=== PATIENT | female | born 1950 | race Caucasian/White ===

== ENCOUNTER 2016-08-11 20:06 | Inpatient (IN) | payer BC, OTHER ==
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
--- NOTE | ~2016-08-11 | EGD ---
EGD REPORT [facility] [address] [address] NAME: MATY COBURN : 52 STATUS : ADM IN PAT#: [id number] AGE: 66 ADM/REG DATE : 08/11/16 MR#: [id number] REPORT SERV DATE: 08/18/16 DICTATED BY: DATE: REPORT STATUS : Draft TRANSCRIBED BY: [employer] DATE: 08/18/16 Endoscopy Center Patient Name: Maty Coburn Date of : 1950 Attending MD: STALIN MAHER MD Procedure Date No Time: 08/18/2016 Procedure: Upper GI endoscopy Indications: Dysphagia Referring MD: CODY KLEIN Medicines: Monitored Anesthesia Care Complications: No immediate complications. Procedure: Pre-Anesthesia Assessment: - ASA Grade Assessment: IV - A patient with severe systemic disease that is a constant threat to life. After obtaining informed consent, the endoscope was passed under direct vision. Throughout the procedure, the patient's blood pressure, pulse, and oxygen saturations were monitored continuously. The GIF [id number] was introduced through the mouth, and advanced to the third part of duodenum. The upper GI endoscopy was accomplished without difficulty. The patient tolerated the procedure well. Findings: A mild Schatzki ring (acquired) was found at the gastroesophageal junction. This was best visualized in retroflexion Biopsies were taken with a cold forceps for histology from the mid and distal esophagus to evaluate for EoE. A guidewire was placed and the scope was withdrawn. Dilation was performed with a Savary dilator with no resistance at 57 Fr. The examined esophagus was mildly tortuous. No other significant abnormalities were identified in a careful examination of the esophagus. There is no endoscopic evidence of Salgado's esophagus, areas of erosion, hiatus hernia, ulcerations, varices, findings consistent with candidiasis, vertical lines or white specks in the entire esophagus. The entire examined stomach was normal. There is no endoscopic evidence of inflammation, mucosal abnormalities, ulceration or varices in the entire examined stomach. The examined duodenum was normal. There is no endoscopic evidence of inflammation, mucosal abnormalities, stenosis or ulceration in the entire examined duodenum. The cardia and gastric fundus were otherwise normal on retroflexion. Impression: - Mild Schatzki ring. Biopsied. Dilated. - Tortuous esophagus. EGD REPORT [place] [id number] [place]. [address] NAME: MATY COBURN : 52 STATUS : ADM IN [facility]#: [id number] AGE: 66 ADM/REG DATE : 08/11/16 MR#: [id number] REPORT SERV DATE: 08/18/16 DICTATED BY: DATE: REPORT STATUS : Draft TRANSCRIBED BY: [employer] DATE: 08/18/16 - Normal stomach. - Normal examined duodenum. Recommendation: - Return patient to [facility] for ongoing care. - Continue present medications. - Await pathology results. - Concur with interval Reglan. Hopefully can be d/c in future. Will arrange follow up with Dr. Nino through our office. Procedure Code(s): --- Professional --- 94937, Esophagogastroduodenoscopy, flexible, transoral; with insertion of guide wire followed by passage of dilator(s) through esophagus over guide wire 28250, Esophagogastroduodenoscopy, flexible, transoral; with biopsy, single or multiple Diagnosis Code(s): --- Professional --- K22.2, Esophageal obstruction Q39.9, Congenital malformation of esophagus, unspecified R13.10, Dysphagia, unspecified CPT copyright 2013 [employer]. All rights reserved. The codes documented in this report are preliminary and upon expediter review may be revised to meet current compliance requirements. STALIN MAHER MD 08/18/2016 9:39 AM This report has been signed electronically. Number of Addenda: 0 Note Initiated On: 08/18/2016 8:58 AM Scope Withdrawal Time 0 hours 0 minutes 0 seconds [id number] [place] [address]
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
--- NOTE | ~2016-08-11 | CN ---
Consultation Report [facility] [address] [place]. [address] NAME: CHAPIN GUTIERRES : 52 STATUS : ADM IN PAT#: [id number] AGE: 66 ADM/REG DATE : 08/12/16 MR#: [id number] REPORT SERV DATE: 08/13/16 DICTATED BY: ARAVIND CHOUDHURY DATE: 08/13/16 REPORT STATUS : Draft TRANSCRIBED BY: MODL DATE: 08/13/16 SURGICAL CONSULTATION NOTE DATE OF CONSULTATION: 08/13/2016 REQUESTING PHYSICIAN: Hospitalist Christian/Kole Parry M.D. HISTORY: This is a 66-year-old, morbidly obese, white female with an extremely long complex and confusing past medical and surgical history. This is well detailed in Dr. Webster's admission note as well as Dr. Soto' GI consultation note. Distilling her issues from a GI nature is that she has for some time been suspected to have gastroparesis but then gastric emptying study showed no evidence of this recently. She had been planned for EGDs but had not gotten it scheduled. Dr. Soto' notes indicate that he has suspected she has oropharyngeal dysphagia and has recommended the possibility of modified barium swallow plus or minus EGD in the future for possible aspiration pneumonia and to further evaluate her esophageal problems. The patient was actually at [facility] starting about a month ago and was there for about 10 days and then got transferred to the [facility] for about a week. She had been home for a week. She was placed in the facility here for further respiratory problems and evaluation of pneumonia for last few days. REVIEW OF SYSTEMS: Reveals that the patient has regular bowel movements. She had them fairly regularly during her [facility] admission. Now is on sort of a modified thick diet and then the last few days here, she has had a lot to eat, but she does claim to have solid bowel movements. In the early hours of the morning over late last evening, she developed persistent nausea and vomiting, requesting Phenergan. A KUB showed markedly to massively distended stomach with dilated small bowel. Reading the notes from 2230 hours last night, the abdomen was firm and bowel sounds were positive. Her medications were changed and a KUB showed the aforementioned findings. An NG tube was placed with marked improvement in her symptoms. She did get 200 mL of gastric content out but probably a lot of massive amount air that cannot be measured. Followup CT scan today has shown again the possibility of a small bowel obstruction, specifically with the dilated stomach as previously reported and then her small bowel is dilated throughout the upper jejunum and nondistended bowel down into the pelvis. She had some bibasilar infiltrates in her lungs. The abdomen is quite distended and tympanitic but curiously extremely soft with absolutely no tenderness. Bowel sounds are decreased. I see no evidence of abdominal wall hernia. She has small incisions from laparoscopic cholecystectomy. I do not see an incision under suprapubic area from hysterectomy. I suspect her hysterectomy may have been vaginal. There is no hepatosplenomegaly or masses. LABORATORY DATA: WBCs 11.1 thousand with 10 bands, H and H 11.8 and 36.2, potassium 5.7. Consultation Report [address] [place]. [address] NAME: CHAPIN GUTIERRES : 52 STATUS : ADM IN [facility]#: [id number] AGE: 66 ADM/REG DATE : 08/12/16 MR#: [id number] REPORT SERV DATE: 08/13/16 DICTATED BY: ARAVIND CHOUDHURY DATE: 08/13/16 REPORT STATUS : Draft TRANSCRIBED BY: ROMINA DATE: 08/13/16 LFTs within normal limits. IMPRESSION: Possible mechanical small bowel obstruction, favor ileus or some other "peristaltic dysfunction." PLAN: The patient seems to have resolved her current symptoms of nausea and vomiting. She is temporarily with NG tube insertion. Will check KUB for further evaluation of success. She may benefit from water-soluble contrast small bowel series if she continues to have persistent problems. WR/MODL Aravind Choudhury M.D. / [id number] CC: Amber Weathers KATRINA V.
--- NOTE | ~2016-08-11 | IDS ---
Interim Discharge Summary [facility] [address] [place]. [address] NAME: CHAPIN GUTIERRES : 52 STATUS : ADM IN PAT#: [id number] AGE: 66 ADM/REG DATE : 08/11/16 MR#: [id number] REPORT SERV DATE: 08/27/16 DICTATED BY: SEAN HINKLE DATE: 08/27/16 REPORT STATUS : Draft TRANSCRIBED BY: MODSimran DATE: 08/27/16 ADMISSION DATE: 08/11/2016 DISCHARGE DATE: REASON FOR ADMISSION: This is a 66-year-old female, who presented with shortness of breath and cough and would be admitted for aspiration bronchitis, and acute exacerbation of COPD. INITERIM DISCHARGE DIAGNOSES: 1. Megacolon/Denver's, resolved. 2. Oropharyngeal dysphagia with status post aspiration pneumonia and bronchitis, status post antibiotic therapy. 3. Status post acute exacerbation of chronic obstructive pulmonary disease. 4. Gastroparesis. 5. Chronic pain. 6. Paroxysmal atrial fibrillation. 7. Hypertension. 8. Hyperthyroidism, on PTU therapy. 9. Sinus congestion. HOSPITAL COURSE: Please see interim discharge summary from Dr. Olvin Jeronimo on 08/21/2016 and admission H and P from Dr. Fitz Webster on 08/12/2016 for full details on admission and hospital stay. I picked the patient up on 08/22/2016. 1. Megacolon/Salomon's. The patient was having abdominal pain and distention on my visit with her on the 08/22/2016. She had had a KUB on the afternoon of the 08/21/2016 which showed a dilated colon. A rectal tube was placed and a KUB was rechecked. Due to the size of her colon dilation and severity of her symptoms, the patient was seen by surgeon, Dr. Woodall, who felt like she would need to have a colonoscopy decompression, so that was performed by Dr. Nino on the afternoon of the 08/22/2016. She saw dilated sigmoid colon and transverse colon and ascending colon, placed a rectal tube to low intermittent wall suction. The decompression tube did help resolve the symptoms. However, on the night of the 08/23/2016, the patient's rectal tube came out with bowel movement. After the rectal tube came out, she again started experiencing abdominal distention, KUB that morning which showed diffuse gaseous dilation of the colon that measured 7.5 cm. However, the patient began having bowel movements later that day and passing gas, and on the morning of the 08/25/2016 KUB which showed successful decompression of the distended colon. The patient's MS Contin which she takes chronically at home had been restarted the previous week and so it was discontinued again. About 48 hours after the discontinuation of the MS Contin is when the patient experienced successful decompression of the colon without the assistance of rectal tube. Since that time, her diet has been readvanced. She is now once again on mechanical soft diet with honey thick liquids. The patient had a swallow test that had revealed aspirations and the recommendation was made for mechanical soft diet with chopped meats with gravy, honey thick liquids and chin tuck with double swallow. It was also recommended for her to receive esophageal stimulation with a repeat barium swallow study in six to eight weeks. 2. Oropharyngeal dysphagia with aspiration pneumonia and bronchitis. The patient is now Interim Discharge Summary [address] [address] NAME: CHAPIN GUTIERRES : 52 STATUS : ADM IN PAT#: [id number] AGE: 66 ADM/REG DATE : 08/11/16 MR#: [id number] REPORT SERV DATE: 08/27/16 DICTATED BY: SEAN HINKLE DATE: 08/27/16 REPORT STATUS : Draft TRANSCRIBED BY: ROMINA DATE: 08/27/16 status post antibiotic treatment for the aspiration pneumonia and bronchitis. However, with her COPD, she was still having recurrent bronchospasms, this week those bronchospasms have resolved, and she has been weaned off prednisone. However, she possibly experienced yet another aspiration event overnight. She had extreme coughing spells and felt like she was choking. Apparently, the patient potentially received liquids without thickening agent and so that could have been the cause. At any rate, the patient is better today, no acute shortness of breath, although she does have congestive sounds in her upper airway. Chest x-ray has been ordered and pending. We have given her a Yankauer suction to use p.r.n. I also gave her Lasix 20 mg IV x1, and I have given strict orders to only give the patient thickened liquids. 3. Gastroparesis. The patient's appetite is doing well on a combination of Marinol and Reglan. She is able to tolerate her current diet. 4. Chronic pain. We have substituted fentanyl patch for her MS Contin, and her pain is satisfactorily controlled currently. 5. Paroxysmal atrial fibrillation. The patient actually had a short run of atrial fibrillation with RVR. Today, we have given her an extra dose of Cardizem 60 mg x1 now and repeat in six hours, and we will increase her to 300 mg p.o. daily of her Cardizem CD tomorrow morning. 6. Sinus congestion. The patient has some complaints of ear fullness and sinus congestion. We have started her on Flonase, Astelin nasal spray, and Claritin and this has helped her symptoms. CURRENT MEDICATIONS: 1. Albuterol inhaled q.4 hours. 2. Astelin nasal spray b.i.d. 3. Formoterol tartrate inhaled b.i.d. 4. Budesonide inhaled b.i.d. 5. Clotrimazole 10 mg p.o. five times a day. 6. Diltiazem CD 300 mg p.o. daily. 7. Marinol 5 mg p.o. b.i.d. 8. Fentanyl 50 mcg q.72 hours. 9. Fluticasone nasal spray daily. 10.Guaifenesin 1200 mg p.o. b.i.d. 11.Spiriva daily. 12.Lisinopril 20 mg p.o. daily. 13.Loratadine 10 mg p.o. daily. 14.Reglan 5 mg p.o. q.6 hours. 15.Singulair 10 mg p.o. daily. 16.Protonix 40 mg p.o. daily. 17.MiraLAX one packet p.o. daily. 18.Pramipexole 1 mg p.o. q.h.s. 19.Propylthiouracil 50 mg p.o. t.i.d. 20.Senna two tabs p.o. b.i.d. 21.Simethicone 120 mg p.o. before meals. 22.Hydralazine 50 mg p.o. q.8 hours. CURRENT PLAN: The patient to be reassessed in the morning. If stable for discharge, we will Interim Discharge Summary [facility] [address] [place]. [address] NAME: CHAPIN GUTIERRES : 52 STATUS : ADM IN PAT#: [id number] AGE: 66 ADM/REG DATE : 08/11/16 MR#: [id number] REPORT SERV DATE: 08/27/16 DICTATED BY: SEAN HINKLE DATE: 08/27/16 REPORT STATUS : Draft TRANSCRIBED BY: ROMINA DATE: 08/27/16 try to facilitate discharge to rehab. The patient does have [employer] Medicare, so information will have to be submitted to her insurance in the morning. This perhaps will take 24 hours or more. Case Management to assist with that. BENJAMIN/ROMINA Sean Hinkle APN / [id number] CC: Amber Weathers KATRINA V. Carlos Baleeiro, M.D. Destin Griffin-Trussell, FNP Walter Rose, M.D.
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
--- NOTE | ~2016-08-11 | IDS ---
Interim Discharge Summary [facility] [address] [place]. [address] NAME: CHAPIN GUTIERRES : 52 STATUS : ADM IN PAT#: [id number] AGE: 66 ADM/REG DATE : 08/11/16 MR#: [id number] REPORT SERV DATE: 09/05/16 DICTATED BY: MICHAEL JERONIMO DATE: 09/04/16 REPORT STATUS : Draft TRANSCRIBED BY: MODL DATE: 09/04/16 ADMISSION DATE: 08/11/2016 DISCHARGE DATE: DATE OF SUMMARY: 09/04/2016 Interim summary covers period from 08/29/2016 through 09/04/2016. CURRENT DIAGNOSES: 1. Acute exacerbation of chronic obstructive pulmonary disease with history of asthma, somewhat refractory to maximal medical therapy, improved at this time. 2. Oropharyngeal dysphagia by modified barium swallow study. Rehab swallow therapy needed. 3. Suspected recurrent aspiration with history of aspiration, treated with prolonged hospitalization at [facility] in July of this year. 4. Nosocomial acquired acute influenza A leading to recurrent exacerbation of chronic obstructive pulmonary disease, treated and improved at this time. 5. Small-bowel obstruction, present on admission, improved. 6. Megacolon/Falmouth's syndrome, nosocomial acquired, improved. 7. Chronic nausea and dysphagia with EGD on 08/18/2016 demonstrating mild Schatzki's ring, dilated tortuous esophagus, normal stomach, and normal examined duodenum. 8. Gastroesophageal reflux disease. 9. Uncontrolled hypertension, improved at this time. 10.Paroxysmal atrial fibrillation. 11.Sinus rhythm at this time, on medical therapy. 12.Eliquis anticoagulation with no consistent mucosal bleeding, noting positive stool for Hemoccult on the 08/31/2016, negative on the 08/30/2016 and 09/01/2016. 13.Chronic hyperthyroidism, on outpatient PTU, uncontrolled on same with TSH values 0.21, 0.056, 0.024. Transition to methimazole. 14.Iron deficiency with ferritin of 37, treated with IV Nulecit. 15.Chronic anemia. 16.Acute thrombocytopenia with present illness, improved. 17.Acute kidney injury, present on admission, improved. 18.Chronic pain syndrome with acute exacerbation during hospitalization. Chronic pain medications deescalated because of bowel dysmotility as described above. 19.Obstructive sleep apnea post uvulopalatopharyngoplasty, on home O2. 20.Restless legs syndrome. 21.Urinary retention requiring Perry catheterization. 22.History of gout with possible acute gout today, right foot, Solu-Medrol initiated. 23.History of yjh-MF-wqrhmjxcy myocardial infarction in 2010 without significant troponin elevations this admission. 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 25.Polypharmacy, see med list. 26.Poly-allergy. See allergy list. 27.Poly-surgery. See surgical List. Interim Discharge Summary [address] [address] NAME: CHAPIN GUTIERRES : 52 STATUS : ADM IN [facility]#: [id number] AGE: 66 ADM/REG DATE : 08/11/16 MR#: [id number] REPORT SERV DATE: 09/05/16 DICTATED BY: MICHAEL JERONIMO DATE: 09/04/16 REPORT STATUS : Draft TRANSCRIBED BY: MODSimran DATE: 09/04/16 OPERATIONS AND PROCEDURES: During this interim, none. INTERVAL HISTORY: She was diagnosed as having acute influenza A on 08/28/2016. She was started on Tamiflu 75 mg twice daily. In addition, she was thought to have developed hospital-acquired pneumonia and was placed on vancomycin and cefepime. With these events, there was an exacerbation of her cough, sputum, wheezing, and dyspnea. She received five days of Tamiflu. She was followed by Pulmonary. ID consultation was obtained on the 08/31/2016, and she was seen by Dr. Wei Cesar. He suggested continuing her current regimen, but re-culturing and changing her antimicrobial therapy to meropenem should she have recurrent fever. This did not occur. During this week, her vancomycin and cefepime have been sequentially discontinued. Her last temperature of 100 or greater was on 08/31/2016. A procalcitonin which had been 0.79 on the 08/31/2016 was 0.10 on the 09/02/2016. Her white count which was 16.4 on the 08/29/2016 normalized at 9.9 on the 08/30/2016 and is 4.7 today. During this time, her cough, sputum, dyspnea, and wheezing have also improved, but not totally resolved. It was felt that some of her bronchospasm and dyspnea was related to volume overload. She improved with IV diuretic therapy and has been transitioned to maintenance p.o. Aldactone and torsemide with continued improvement. She continues to have intermittent nausea, requiring IV Phenergan. She has no relief from Zofran. An attempt has been made to discontinue her chronic Perry catheterization. With the same, she developed urinary retention and this has been replaced. She has had recurrent atrial fibrillation. Because of her high stroke risk, she was placed on Eliquis. At this time, she is back in sinus rhythm without evident mucosal bleeding and a stable hemoglobin in the 7s. With her recurrent atrial fibrillation and documented hyperthyroidism, it was decided her treatment was adequate on her chronic PTU as noted by the above-mentioned TSH values. She has been transitioned to high-dose methimazole with followup data pending. She has had some encephalopathy. It is thought to be related to her chronic opioids. These have been deescalated with significant improvement in her mental status. She currently is on p.r.n. Percocet only and no maintenance opioids. She is being re-evaluated by Physical Therapy and [facility] for inpatient rehab. I spoke with the [facility] liaison today. The patient has agreed to same if medically and financially approved. Interim Discharge Summary [address] [address] NAME: CHAPIN GUTIERRES : 52 STATUS : ADM IN [facility]#: [id number] AGE: 66 ADM/REG DATE : 08/11/16 MR#: [id number] REPORT SERV DATE: 09/05/16 DICTATED BY: MICHAEL JERONIMO DATE: 09/04/16 REPORT STATUS : Draft TRANSCRIBED BY: MODL DATE: 09/04/16 Hospitalist care will be assumed by [address] [place] [address] hospitalist team on 09/05/2016. DD/SUJEYL Michael Jeronimo M.D. / [id number] CC: Amber Yee KATRINA V.
--- NOTE | ~2016-08-11 | EGD ---
EGD REPORT [facility] [address] [address] NAME: MATY COBURN LANDRADHA : 52 STATUS : ADM IN PAT#: [id number] AGE: 66 ADM/REG DATE : 08/11/16 MR#: [id number] REPORT SERV DATE: 08/22/16 DICTATED BY: SHAGGY LIZARRAGA DATE: 08/22/16 REPORT STATUS : Draft TRANSCRIBED BY: [facility] DATE: 08/22/16 Endoscopy Center Patient Name: Maty Coburn Date of : 1950 Attending MD: SHAGGY LIZARRAGA MD Procedure Date No Time: 08/22/2016 Procedure: Colonoscopy Indications: Therapeutic procedure, For therapy of Salomon's syndrome Referring MD: CODY KLEIN Medicines: Propofol per Anesthesia Complications: No immediate complications. Procedure: Pre-Anesthesia Assessment: - ASA Grade Assessment: III - A patient with severe systemic disease. After I obtained informed consent, the scope was passed under direct vision. Throughout the procedure, the patient's blood pressure, pulse, and oxygen saturations were monitored continuously. The [facility] [id number] was introduced through the anus and advanced to the ascending colon for evaluation. This was the intended extent. The colonoscopy was performed without difficulty. The patient tolerated the procedure well. The quality of the bowel preparation was poor. Findings: The perianal and digital rectal examinations were normal. The lumen of the sigmoid colon, transverse colon and ascending colon was significantly dilated. No ischemic changes were seen. A colonic decompression tube was placed. Impression: - Preparation of the colon was poor. - Dilated in the sigmoid colon, in the transverse colon and in the ascending colon. Recommendation: - Keep rectal tube to LIWS. - Repeat KUB in AM. Procedure Code(s): --- Professional --- 40690, 52, Colonoscopy, flexible, proximal to splenic flexure; diagnostic, with or without collection of specimen(s) by brushing or washing, with or without colon decompression (separate procedure) Diagnosis Code(s): --- Professional --- K59.3, Megacolon, not elsewhere classified EGD REPORT [facility] [address] [address] NAME: MATY COBURN : 52 STATUS : ADM IN PAT#: [id number] AGE: 66 ADM/REG DATE : 08/11/16 MR#: [id number] REPORT SERV DATE: 08/22/16 DICTATED BY: SHAGGY LIZARRAGA. DATE: 08/22/16 REPORT STATUS : Draft TRANSCRIBED BY: [employer] DATE: 08/22/16 K59.8, Other specified functional intestinal disorders CPT copyright 2013 [employer] [place] [employer]. All rights reserved. The codes documented in this report are preliminary and upon sonar technician review may be revised to meet current compliance requirements. SHAGGY LIZARRAGA MD 08/22/2016 5:45 PM This report has been signed electronically. Number of Addenda: 0 Note Initiated On: 08/22/2016 4:44 PM Scope Withdrawal Time 0 hours 0 minutes 0 seconds [address] [address]
--- NOTE | ~2016-08-11 | IDS ---
Interim Discharge Summary [facility] [address] [place]. [address] NAME: CHAPIN GUTIERRES : 51 STATUS : ADM IN PAT#: [id number] AGE: 66 ADM/REG DATE : 08/11/16 MR#: [id number] REPORT SERV DATE: 08/21/16 DICTATED BY: MICHAEL JERONIMO DATE: 08/20/16 REPORT STATUS : Draft TRANSCRIBED BY: MODL DATE: 08/20/16 ADMISSION DATE: 08/11/2016 DISCHARGE DATE: DATE OF INTERIM SUMMARY: 08/20/2016. CURRENT DIAGNOSES: 1. 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 2. Oropharyngeal dysphagia by modified barium swallow study. 3. Suspected aspiration on admission with history of aspiration, treated with prolonged hospitalization at [facility] in July of this year. 4. Small-bowel obstruction, present on admission, improved. 5. Acute kidney injury, present on admission, improved. 6. Chronic nausea and dysphagia with EGD on the demonstrating mild Schatzki ring, dilated tortuous esophagus, normal stomach, and normal examined duodenum. 7. Gastroesophageal reflux disease. 8. Uncontrolled hypertension, improved control at this time. 9. Paroxysmal atrial fibrillation with history of same, Eliquis initiated. 10.Chronic hyperthyroid, on PTU. Further endocrine outpatient followup needed at discharge. 11.Iron deficiency with ferritin 37, treated with IV Nulecit. 12.Obstructive sleep apnea, on home O2. 13.Restless leg syndrome. 14.Chronic pain syndrome. 15.History of colon polyps. 16.History of non-STEMI, 2010. 17.History of gout. 18.Polypharmacy. 19.Polyallergies. 20.Polysurgeries. 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 22.Inpatient rehab recommended by PT, currently declined by patient. OPERATIONS AND PROCEDURES: None. PRESENT ILLNESS: This is a medically complex 66-year-old white female, who was triaged in the emergency room on 08/11/2016 at 1605 hours with shortness of breath. After evaluation in the emergency room, she was referred to the Hospitalist Service. She was seen by Dr. Fitz Webster and admitted as described on admission history and physical examination. Additional history was that she had been hospitalized at [facility] for approximately 10 days in early July and was subsequently transferred to [facility]. After a slow recovery, it was recommended that she be transitioned to rehab or a skilled facility, but she opted to return home. Interim Discharge Summary [place] [id number] [place]. [address] NAME: CHAPIN GUTIERRES : 51 STATUS : ADM IN [facility]#: [id number] AGE: 66 ADM/REG DATE : 08/11/16 MR#: [id number] REPORT SERV DATE: 08/21/16 DICTATED BY: MICHAEL JERONIMO DATE: 08/20/16 REPORT STATUS : Draft TRANSCRIBED BY: MODL DATE: 08/20/16 For three days prior to admission, she began to feel poorly again with increasing congestion and a cough productive of yellow sputum. She came here for further evaluation as described. ADDITIONAL HISTORY: Per Dr. Webster. PHYSICAL EXAMINATION: Per Dr. Webster. ADMISSION LABORATORY: Per Dr. Webster. HOSPITAL COURSE: She was admitted by Dr. Webster with: 1. Aspiration bronchitis. 2. Acute kidney injury. 3. Odynophagia. 4. Polypharmacy. 5. Recent aspiration pneumonia, all in the setting of the above-mentioned comorbidities. On admission, she was placed on p.o. prednisone, aerosols, Zithromax, and IV fluids. Her home diuretic was held. GI consultation was obtained. Her hospitalist care was by Dr. Parry through 08/14/2016 and then the undersigned from 08/15/2016. She was seen by GI, Dr. Soto. He recommended empiric Diflucan, PPI therapy, modified barium swallow, and EGD when her symptoms allowed. With her GI symptoms, a CT scan of her abdomen and pelvis was done on the . This demonstrated 1. Small-bowel obstruction transitioned to nondistended bowel seen in the pelvis. 2. Patchy bibasilar infiltrates. 3. Small hiatal hernia. 4. Nonobstructing right intrarenal calculi. 5. Tiny appendolith with no evidence of acute cholecystitis. She was seen in surgical consultation by Dr. Aravind Woodall. His impression was possible mechanical small-bowel obstruction, but he favored ileus or some other "peristaltic dysfunction." An NG tube had been placed. Her symptoms were improving. He suggested consideration of small-bowel follow-through. Her abdominal films showed continued improvement. Her NG tube was discontinued. PO intake was initiated and progressed. She did not have further nausea or vomiting. There was a concern about aspiration. A modified barium swallow was done on 08/16 that demonstrated deep penetration to the level of the vocal cords with thin and nectar-thick liquids with suspected aspiration due to cough, but this could not be visualized. Dietary modification was recommended with e-stim at her next level of care. On 08/18/2016, an EGD was done with findings as noted above. Interim Discharge Summary [facility] [address] [place]. [address] NAME: CHAPIN GUTIERRES : 51 STATUS : ADM IN [facility]#: [id number] AGE: 66 ADM/REG DATE : 08/11/16 MR#: [id number] REPORT SERV DATE: 08/21/16 DICTATED BY: MICHAEL JERONIMO DATE: 08/20/16 REPORT STATUS : Draft TRANSCRIBED BY: ROMINA DATE: 08/20/16 She continues to have some intermittent nausea and dysphagia, but her symptoms have improved with Reglan and Protonix as well as the above-mentioned dilatation. Her cough, sputum, and wheezing have persisted. This is despite bronchodilator therapy with DuoNebs, Brovana, and budesonide as well as p.o. Mucinex and Singulair in addition to dietary modifications recommended by Speech. It is felt microaspiration is probably contributing as well as possibly some volume overload. As noted, her diuretics were discontinued on admission. With resolution of her acute kidney injury, these are being re- instituted. To further evaluate her persistent bronchospasm, a CT scan of her neck was done to evaluate the possibility of upper airway obstruction or other abnormalities. No abnormalities were found except extensive surgical changes as noted on official report. A CT scan of her chest demonstrates persistent bibasilar parenchymal bands, but no acute pneumonic process. She has required intensification of her home blood pressure regimen to achieve better blood pressure control. Blood pressures today are 148/66, 142/66, and 127/66 which are significantly better. She has paroxysmal atrial fibrillation. Apparently, it was identified during previous hospitalization at [place]. In the absence of contraindications to anticoagulation therapy and with her high CHADS-VASC score, Eliquis has been started. On admission, her home pain medications were discontinued. Her chronic pain intensified. With re-institution, she is back to her baseline state. She has been on propylthiouracil for hyperthyroidism for an unclear period of time. She did have a documented low TSH in 02/2011 and 09/2012. TSH on admission here was 0.21. Her PTU had been held on admission. A repeat TSH was 0.056 with a free T4 of 1.67. Her PT was restarted. Notably her neck CT did not show any thyroid enlargement. She will need endocrine followup at discharge. Hospitalist care to be assumed by [address] [place] [address] Team pending transition planning on 08/21/2016. DD/ROMINA Michael Jeronimo M.D. / [id number] Interim Discharge Summary [address] [address] NAME: CHAPIN GUTIERRES : 51 STATUS : ADM IN PAT#: [id number] AGE: 66 ADM/REG DATE : 08/11/16 MR#: [id number] REPORT SERV DATE: 08/21/16 DICTATED BY: MICHAEL JERONIMO DATE: 08/20/16 REPORT STATUS : Draft TRANSCRIBED BY: ROMINA DATE: 08/20/16 CC: Amber Yee MD
--- NOTE | ~2016-08-11 | DS ---
Discharge Summary [facility] [address] [place]. [address] NAME: CHAPIN GUTIERRES : 52 STATUS : DIS IN PAT#: [id number] AGE: 66 ADM/REG DATE : 08/11/16 MR#: [id number] REPORT SERV DATE: 09/07/16 DICTATED BY: CHRISTOPHER ADLER DATE: 09/06/16 REPORT STATUS : Draft TRANSCRIBED BY: MODSimran DATE: 09/06/16 ADMISSION DATE: 08/11/2016 DISCHARGE DATE: 09/06/2016 DISCHARGE DIAGNOSES: 1. Acute exacerbation of chronic obstructive pulmonary disease with history of asthma, somewhat refractory to maximal medical therapy, improved and stable at this time. Oropharyngeal dysphagia with modified barium swallow study. Will need speech therapy at rehab. 2. Suspected recurrent aspiration with history of aspiration, treated with prolonged hospitalization at [facility] in July of this year. 3. Nosocomial acquired acute influenza A leading to recurrent exacerbation of chronic obstructive pulmonary disease, treated and improved at this time. 4. Small-bowel obstruction, present on admission, which has now resolved. 5. Megacolon with [place] syndrome, nosocomial acquired, which has now resolved. 6. Chronic nausea and dysphagia with EGD on 08/18/2016 demonstrating mild Schatzki's ring, dilated tortuous esophagus, normal stomach and normal examined duodenum. 7. Gastroesophageal reflux disease. 8. Uncontrolled hypertension, currently improved with medication adjustments. 9. Paroxysmal atrial fibrillation. 10.Sinus rhythm in good time, on medical therapy. 11.Eliquis anticoagulation with no consistent mucosal bleeding, noting positive stools for Hemoccult on 08/31/2016, 08/30/2016, and the 09/01/2016. 12.Chronic hyperthyroidism, on outpatient PTU, uncontrolled on the same with TSH values of 0.21 and 0.05 and 0.02. Transitioned to methimazole. 13.Iron deficiency with ferritin of 37, treated with IV Nulecit. 14.Chronic anemia. 15.Chronic thrombocytopenia, due to present illness, currently improved. 16.Acute kidney injury, currently resolved. 17.Chronic pain syndrome with acute exacerbation during hospitalization. Chronic pain medications deescalated because of bowel dysmotility as described above. 18.Obstructive sleep apnea, post valvuloplasty, on home O2 at night. 19.Restless leg syndrome. 20.Urinary retention, requiring Perry catheterization, to be continued at discharge. 21.History of gout with possible acute gout today, right foot, Solu-Medrol initiated and resolved. 22.History of non ST-elevation myocardial infarction in 2010 without significant troponin elevation this admission. 23.Low IgG subclass 1 and 2. 24.Polypharmacy. 25.Poly-allergy. 26.Poly-surgery. CONSULTANTS DURING THIS HOSPITALIZATION: Dr. Wei Cesar of Infectious Disease. Dr. Christine Soto of Gastroenterology. Dr. Aravind Woodall of General Surgery. Discharge Summary [place] [address] [facility] [place]. [address] NAME: CHAPIN GUTIERRES : 52 STATUS : DIS IN PAT#: [id number] AGE: 66 ADM/REG DATE : 08/11/16 MR#: [id number] REPORT SERV DATE: 09/07/16 DICTATED BY: CHRISTOPHER ADLER DATE: 09/06/16 REPORT STATUS : Draft TRANSCRIBED BY: ROMINA DATE: 09/06/16 PROCEDURES: Invasive procedures during this hospital course none. BRIEF HISTORY OF PRESENT ILLNESS: The patient is a medically complex 66-year-old female, admitted with shortness of breath on 08/11/2016. For detailed history and physical exam, please see note dictated by Dr. Fitz Webster on 08/11/2016. HOSPITAL COURSE: After being admitted to the hospital, this patient was cared for by Dr. Kole Parry and then her care was handed off to Dr. Olvin Jeronimo on 08/15/2016. Please refer to interim summary dictated by Dr. Jeronimo on 08/21/2016 during that hospital course, and then the patient was again seen by Dr. Parry and Dr. Johnnie Carbajal. Please refer to interim summary dictated on 08/27/[address] Johnnie Carbajal and then Dr. Jeronimo saw the patient again. Please refer to Dr. Jeronimo's interim summary dictated on 09/05/2016. The undersigned took over the patient's care on 09/05/2016. This patient was doing relatively well. We were at this point only awaiting rehab approval from her insurance company. The patient had been referred to [facility]. I did review her chart thoroughly. Currently, she is stable and all medical condition seems to be progressing well or as better as it can be expected in this complex medically ill patient. She is ready for rehab. She did complain of some heel pain. This was thought due to pressurizing against the bed and the patient was re-encouraged that with rehab that should improve. She remained stable, otherwise and is being discharged in stable condition. DISCHARGE DISPOSITION: To rehab. DISCHARGE ACTIVITY: Per facility. DISCHARGE DIET: 1800 calorie [employer] [place] [employer] diet. DISCHARGE MEDICATIONS: Eliquis 2.5 mg p.o. twice daily, Astelin nasal spray two sprays each nostril once daily, artificial tears as needed, Cardizem CD 360 mg once daily, Flonase two puffs each nostril once daily, guaifenesin 1200 mg p.o. twice daily, Lidoderm patch 5% applied to the right shoulder and neck 12 hours on 12 hours off, lisinopril 10 mg once daily, magnesium oxide 400 mg p.o. three times daily, methimazole 20 mg p.o. every eight hours, Reglan 5 mg p.o. before meals and at bedtime, Singulair 10 mg with lunch, Nexium 40 mg twice daily, MiraLAX one packet p.o. twice daily, Mirapex 1 mg p.o. once at bedtime, Colace 100 mg p.o. once at bedtime, Mylicon 120 mg p.o. after meals for abdominal bloating, Aldactone 50 mg p.o. every morning, Spiriva one capsule inhalation once daily, torsemide 10 mg once daily, hydralazine 50 mg every eight hours, Brovana 15 mcg one neb twice daily, Proventil 1 neb four times daily, Pulmicort 1 mg neb twice daily, artificial tears, potassium 10 mEq twice daily, Percocet 10/325 one tablet every four hours p.r.n. for pain, and Biotene. DISCHARGE FOLLOWUP: Discharge followup with Dr. Emma Gonzalez post rehab. More than 40 minutes spent planning this patient's discharge, reconciling medications, reviewing the extensive medical history, and documenting this discharge. Discharge Summary [address] [address] NAME: CHAPIN GUTIERRES : 52 STATUS : [facility] [id number] AGE: 66 ADM/REG DATE : 08/11/16 MR#: [id number] REPORT SERV DATE: 09/07/16 DICTATED BY: CHRISTOPHER ADLER DATE: 09/06/16 REPORT STATUS : Draft TRANSCRIBED BY: ROMINA DATE: 09/06/16 JUSTYN/ROMINA Christopher Adler M.D. / [id number] CC: Amber Batista KATRINA V.
[2016-08-11 16:36] LABS: BASOPHILS 0.7 %; BASOPHILS ABSOLUTE 0.06 10/3/uL (0.0-0.16); EOSINOPHILS 3.1 %; EOSINOPHILS ABSOLUTE 0.26 10/3/uL (0.0-0.53); IMMATURE GRANULOCYTES 3.2 %; IMMATURE GRANULOCYTES ABSOLUTE 0.27 10/3/uL (0.0-0.11); LYMPHOCYTES 18.9 %; MEAN CORPUS HGB CONC 31.7 g/dL (32.0-36.0); MEAN PLATELET VOLUME 10.2 fL (9.2-13.0); MONOCYTES 9.3 %; MONOCYTES ABSOLUTE 0.79 10/3/uL (0.21-1.20); NEUTROPHILS 64.8 %; PLATELET COUNT 206 10/3/uL (150-400); RBC DISTRIBUTION WIDTH 17.2 % (12.0-16.0); RED CELL COUNT 4.37 10/6/uL (4.0-5.6); WHITE BLOOD CELLS 8.5 10/3/uL (4.5-10.5)
[2016-08-11 16:41] LABS: HEMATOCRIT 34.7 % (36.0-48.0); MANUAL DIFF NO %; MEAN CORPUSCULAR HEMOGLOB 25.2 pg (26.0-34.0); MEAN CORPUSCULAR VOLUME 79.4 fL (80-100)
[2016-08-11 16:58] LABS: CALCIUM, SERUM 9.5 MG/DL (8.5-10.4); CHEST PAIN PROFILE TAT 0 Hrs 26 Mins; CHLORIDE, SERUM 95 MMOL/L (96-112); CO2 (CARBON DIOXIDE) 29 MMOL/L (24-34); SODIUM, SERUM 135 MMOL/L (135-148); TROPONIN I <0.02 NG/ML (<0.05)
[2016-08-11 16:59] LABS: BUN (BLOOD UREA NITROGEN) 57 MG/DL (6-23); CREATININE 1.49 MG/DL (0.55-1.02); GFR AFRICAN AMERICAN 42 ML/MIN (>=60); GFR NON AFRICAN AMERICAN 36 ML/MIN (>=60); GLUCOSE, SERUM 119 MG/DL (60-99); POTASSIUM, SERUM 5.6 MMOL/L (3.5-5.3)
[2016-08-11 17:00] LABS: PROTIME (NOT ORD) 12.6 SEC (12.0-14.5)
[~2016-08-11 20:06] MED LIST: ADVAIR250 INH; ALBUTERAL INH; ALBUTEROL PO; AMB5 PO; ANADS PO; APRES50 PO; ASAB PO; BACDS PO; CALTRA600D PO; CARD30 PO; CARDIZEM LA360 MG PO; CEFT2 PO; CLARIT10 PO; COMBIVENT INH; CYMBALTA30 PO; DSS PO; DURA50 TOP; ESTROPIPATE0.75 MG PO; FLONASE NAS; GENASOFT100 MG PO; GLUCPH PO; K-TABS10 MEQ PO; KDUR10 PO; KDUR20 PO; KLONO1 PO; KLONO2 PO; KLOR-CON M2020 MEQ PO; L20 PO; L40 PO; L80 PO; LAN125 PO; LIDODERM T; LIPITOR20 PO; LOP25 PO; LOTE20 PO; MACROBID PO; MAGOX4 PO; MCZ25 PO; MIRAPEX0.75 MG PO; MIRAPEX1 MG PO; MIRAPEX5 PO; MSCONT60 PO; MUCINEX; MUCINEX D1 TA1 OR; MUCINEX D1 TA1 PO; MUCINEX D1 TAB OR; MUCINEX1200 MG PO; MUCINEX600 MG PO; NABUMETONE750 MG PO; NEXIUM40 PO; NYSTOP100000 MG TOP; OGEN; ORAMORPH PO; OS500+D PO; OXYCONTIN60 MG PO; P10 PO; P20 PO; PERCOCET1 TA4 PO; PERFOROM INH; PRAVAC PO; PREDNISONE; PROPYLTHIOUR50 MG OR; PROPYLTHIOUR50 MG PO; PROVENTIL NEB INH; PROVENTSOL INH; PROVHFA INH; ROBITUSS22 OR; ROXICODONE15 MG PO; SALONPAS-HOT EX; SINGULAIR1 PO; SKELAXIN8 PO; SPIRIVA INH; STERAPRED DS10 MG PO; SUCR PO; SYMBICORT 160/41 INH INH; TAZTIA X3 PO; TIAZA4 PO; TRAZ100 PO; TRAZODONE150 MG PO; URO-MAG140 MG PO; V5 PO; VENTOLIN HFA INH; XANAX1 MG PO; ZITHROMAX500 MG PO; ZOL100 PO; ZOLOFT PO; [UNRECOGNIZED DRUG - OTHER] PO
[2016-08-11] MEDS ORDERED: FLONASE NAS (21:05)
[2016-08-11] MEDS ORDERED: ALBUTEROL5 INH (21:05)
[2016-08-11] MEDS ORDERED: PRIN10 PO (21:06)
[2016-08-11] MEDS ORDERED: SINGULAIR1 PO (21:06)
[2016-08-11] MEDS ORDERED: PROPYLTHIOURACI50 MG PO (21:06)
[2016-08-11] MEDS ORDERED: KLOR-CON 1010 MEQ PO (21:07)
[2016-08-11] MEDS ORDERED: L40 PO (21:07)
[2016-08-11] MEDS ORDERED: MSCONTIN PO (21:08)
[2016-08-11] MEDS ORDERED: APRES25 PO (21:09)
[2016-08-11] MEDS ORDERED: SPIRO50 PO (21:10)
[2016-08-11] MEDS ORDERED: SPIRIVA INH (21:10)
[2016-08-11] MEDS ORDERED: CARDIZEM LA300 MG PO (21:11)
[2016-08-11] MEDS ORDERED: P20 PO (21:13)
[2016-08-11] MEDS ORDERED: PERCOCET 10/3251 TAB PO (21:14)
[2016-08-11] MEDS ORDERED: DSS PO (21:14)
[2016-08-11] MEDS ORDERED: MAGOX4 PO (21:15)
[2016-08-11] MEDS ORDERED: NEXIUM40 PO (21:15)
[2016-08-11] MEDS ORDERED: MIRAPEX1 MG PO (21:15)
[2016-08-11] MEDS ORDERED: HARD NAILS PO (21:16)
[2016-08-11] MEDS ORDERED: CALTRA600D PO (21:16)
[2016-08-11] MEDS ORDERED: REFRESH OPH SO0.3 ML OPH (21:16)
[2016-08-11] MEDS ORDERED: ASAB PO (21:16)
[2016-08-12 05:11] LABS: BASOPHILS 0.2 %; BASOPHILS ABSOLUTE 0.01 10/3/uL (0.0-0.16); EOSINOPHILS 0.3 %; EOSINOPHILS ABSOLUTE 0.02 10/3/uL (0.0-0.53); HEMATOCRIT 31.6 % (36.0-48.0); HEMOGLOBIN 10.3 g/dL (12.0-16.0); IMMATURE GRANULOCYTES ABSOLUTE 0.12 10/3/uL (0.0-0.11); LYMPHOCYTES 5.6 %; LYMPHOCYTES ABSOLUTE 0.34 10/3/uL (0.67-4.30); MANUAL DIFF NO %; MEAN CORPUS HGB CONC 32.6 g/dL (32.0-36.0); MEAN CORPUSCULAR HEMOGLOB 25.6 pg (26.0-34.0); MEAN CORPUSCULAR VOLUME 78.4 fL (80-100); MEAN PLATELET VOLUME 10.3 fL (9.2-13.0); MONOCYTES 1.5 %; MONOCYTES ABSOLUTE 0.09 10/3/uL (0.21-1.20); NEUTROPHILS 90.4 %; NEUTROPHILS ABSOLUTE 5.53 10/3/uL (2.02-8.40); PLATELET COUNT 212 10/3/uL (150-400); RBC DISTRIBUTION WIDTH 17.1 % (12.0-16.0); RED CELL COUNT 4.03 10/6/uL (4.0-5.6); WHITE BLOOD CELLS 6.1 10/3/uL (4.5-10.5)
[2016-08-13 00:14] LABS: ALBUMIN 3.7 G/DL (3.5-5.0); CALCIUM, SERUM 9.3 MG/DL (8.5-10.4); CHLORIDE, SERUM 98 MMOL/L (96-112); CO2 (CARBON DIOXIDE) 25 MMOL/L (24-34); CREATININE 1.53 MG/DL (0.55-1.02); GFR AFRICAN AMERICAN 41 ML/MIN (>=60); GFR NON AFRICAN AMERICAN 35 ML/MIN (>=60); GLOBULIN 3.8 G/DL (2.5-4.1); POTASSIUM, SERUM 5.2 MMOL/L (3.5-5.3); SGOT(AST) 11 U/L (5-40); SGPT(ALT) 35 U/L (5-65); SODIUM, SERUM 136 MMOL/L (135-148); TOTAL BILIRUBIN 0.3 MG/DL (0-1.2); TOTAL PROTEIN 7.5 G/DL (6.0-8.5)
[2016-08-13 00:16] LABS: ALKALINE PHOSPHATASE 88 U/L (45-117); BUN (BLOOD UREA NITROGEN) 48 MG/DL (6-23); GLUCOSE, SERUM 154 MG/DL (60-99)
[2016-08-13 04:32] LABS: HEMATOCRIT 36.2 % (36.0-48.0); HEMOGLOBIN 11.8 g/dL (12.0-16.0); MANUAL DIFF YES %; MEAN CORPUS HGB CONC 32.6 g/dL (32.0-36.0); MEAN CORPUSCULAR HEMOGLOB 25.6 pg (26.0-34.0); MEAN CORPUSCULAR VOLUME 78.5 fL (80-100); MEAN PLATELET VOLUME 10.3 fL (9.2-13.0); PLATELET COUNT 338 10/3/uL (150-400); RBC DISTRIBUTION WIDTH 17.4 % (12.0-16.0); RED CELL COUNT 4.61 10/6/uL (4.0-5.6); WHITE BLOOD CELLS 11.1 10/3/uL (4.5-10.5)
[2016-08-13 04:37] LABS: INTERNATIONAL NORMAL RATI 1.1 UNITS (-)
[2016-08-13 05:23] LABS: A/G RATIO 1.1 (0.7-1.9); ALBUMIN 3.7 G/DL (3.5-5.0); ALKALINE PHOSPHATASE 76 U/L (45-117); BUN (BLOOD UREA NITROGEN) 53 MG/DL (6-23); CHLORIDE, SERUM 98 MMOL/L (96-112); CO2 (CARBON DIOXIDE) 23 MMOL/L (24-34); CPK 34 U/L (0-200); CREATININE 1.73 MG/DL (0.55-1.02); FERRITIN 37 NG/ML (8-252); FOLATE 24.1 NG/ML (>5.2); FREE T4 1.04 NG/DL (0.76-1.46); GFR AFRICAN AMERICAN 35 ML/MIN (>=60); GFR NON AFRICAN AMERICAN 30 ML/MIN (>=60); GLOBULIN 3.3 G/DL (2.5-4.1); GLUCOSE, SERUM 156 MG/DL (60-99); POTASSIUM, SERUM 5.7 MMOL/L (3.5-5.3); SGOT(AST) 11 U/L (5-40); SGPT(ALT) 32 U/L (5-65); SODIUM, SERUM 136 MMOL/L (135-148); TOTAL BILIRUBIN 1.4 MG/DL (0-1.2); TROPONIN I <0.02 NG/ML (<0.05)
[2016-08-13 06:28] LABS: PARTIAL THROMBO TIME 21.7 SEC (22.5-37.2)
[2016-08-13 06:40] LABS: PROCALCITONIN 4.68 ng/mL (<0.5)
[2016-08-13 07:28] LABS: BAND NEUTROPHILS 10 %; BASOPHILS 1 %; BASOPHILS ABSOLUTE (CALC) 0.11 10/3/uL (0.0-0.16); LYMPHOCYTES 7 %; LYMPHOCYTES ABSOLUTE (CALC) 0.78 10/3/uL (0.67-4.30); MONOCYTES 5 %; MONOCYTES ABSOLUTE (CALC) 0.56 10/3/uL (0.21-1.20); NEUTROPHILS ABSOLUTE (CALC) 9.66 10/3/uL (2.02-8.40); SEGMENTED NEUTROPHIL (0) 77 %; TOTAL NUCLEATED CELLS 100
[2016-08-13 07:29] LABS: ANISOCYTOSIS 1+ (5-10/OIF) (0-5/OIF); PLATELET ESTIMATE ADQ (ADEQUATE)
[2016-08-13 19:19] LABS: ASCORBIC ACID (UR NOT ORDER) NEG (NEG); BILIRUBIN, URINE NEGATIVE (NEG); KETONE, URINE NEGATIVE (NEG); LEUKOCYTE ESTERASE(NOT OR NEG (NEG); WBC (NOT ORDERED) (RFLEX) 2 (0-5)
[2016-08-13 19:27] LABS: CALCIUM, SERUM 8.5 MG/DL (8.5-10.4); CHLORIDE, SERUM 105 MMOL/L (96-112); CO2 (CARBON DIOXIDE) 25 MMOL/L (24-34); CREATININE 1.32 MG/DL (0.55-1.02); GFR AFRICAN AMERICAN 49 ML/MIN (>=60); GFR NON AFRICAN AMERICAN 42 ML/MIN (>=60); POTASSIUM, SERUM 4.9 MMOL/L (3.5-5.3); SODIUM, SERUM 141 MMOL/L (135-148)
[2016-08-13 19:32] LABS: ALBUMIN 2.9 G/DL (3.5-5.0); BUN (BLOOD UREA NITROGEN) 45 MG/DL (6-23); GLUCOSE, SERUM 121 MG/DL (60-99); PHOSPHORUS, SERUM 3.1 MG/DL (2.5-4.5)
[2016-08-14 05:38] LABS: HEMATOCRIT 33.1 % (36.0-48.0); HEMOGLOBIN 10.5 g/dL (12.0-16.0); MEAN CORPUS HGB CONC 31.7 g/dL (32.0-36.0); MEAN CORPUSCULAR HEMOGLOB 25.2 pg (26.0-34.0); MEAN CORPUSCULAR VOLUME 79.6 fL (80-100); MEAN PLATELET VOLUME 9.8 fL (9.2-13.0); PLATELET COUNT 242 10/3/uL (150-400); RBC DISTRIBUTION WIDTH 17.7 % (12.0-16.0); RED CELL COUNT 4.16 10/6/uL (4.0-5.6); WHITE BLOOD CELLS 8.5 10/3/uL (4.5-10.5)
[2016-08-14 05:39] LABS: MANUAL DIFF YES %
[2016-08-14 06:10] LABS: CHLORIDE, SERUM 110 MMOL/L (96-112); CO2 (CARBON DIOXIDE) 22 MMOL/L (24-34); CREATININE 1.04 MG/DL (0.55-1.02); GFR AFRICAN AMERICAN 65 ML/MIN (>=60); GFR NON AFRICAN AMERICAN 56 ML/MIN (>=60); GLUCOSE, SERUM 108 MG/DL (60-99); POTASSIUM, SERUM 4.7 MMOL/L (3.5-5.3); SODIUM, SERUM 145 MMOL/L (135-148)
[2016-08-14 06:14] LABS: BUN (BLOOD UREA NITROGEN) 41 MG/DL (6-23)
[2016-08-14 06:43] LABS: BAND NEUTROPHILS 24 %; IMMATURE GRANS ABSOLUTE (CALC) 0.09 10/3/uL (0.0-0.11); LYMPHOCYTES 3 %; LYMPHOCYTES ABSOLUTE (CALC) 0.26 10/3/uL (0.67-4.30); METAMYELOCYTES 1 %; NEUTROPHILS ABSOLUTE (CALC) 8.16 10/3/uL (2.02-8.40); SEGMENTED NEUTROPHIL (0) 72 %; TOTAL NUCLEATED CELLS 100
[2016-08-14 06:44] LABS: PLATELET ESTIMATE ADQ (ADEQUATE); RBC MORPHOLOGY NORM (NORMAL)
[2016-08-14 18:50] LABS: ASCORBIC ACID (UR NOT ORDER) NEG (NEG); BILIRUBIN, URINE NEGATIVE (NEG); KETONE, URINE NEGATIVE (NEG); WBC (NOT ORDERED) (RFLEX) 4 (0-5)
[2016-08-14 18:51] LABS: LEUKOCYTE ESTERASE(NOT OR TRACE (NEG)
[2016-08-15 05:35] LABS: BASOPHILS 0.3 %; BASOPHILS ABSOLUTE 0.02 10/3/uL (0.0-0.16); EOSINOPHILS 0 %; HEMOGLOBIN 9.4 g/dL (12.0-16.0); IMMATURE GRANULOCYTES 2.1 %; IMMATURE GRANULOCYTES ABSOLUTE 0.14 10/3/uL (0.0-0.11); LYMPHOCYTES 10.7 %; MEAN CORPUS HGB CONC 31.9 g/dL (32.0-36.0); MEAN CORPUSCULAR HEMOGLOB 25.5 pg (26.0-34.0); MEAN CORPUSCULAR VOLUME 80.2 fL (80-100); MEAN PLATELET VOLUME 9.5 fL (9.2-13.0); MONOCYTES 0.8 %; MONOCYTES ABSOLUTE 0.05 10/3/uL (0.21-1.20); NEUTROPHILS 86.1 %; NEUTROPHILS ABSOLUTE 5.62 10/3/uL (2.02-8.40); PLATELET COUNT 202 10/3/uL (150-400); RBC DISTRIBUTION WIDTH 17.7 % (12.0-16.0); RED CELL COUNT 3.68 10/6/uL (4.0-5.6); WHITE BLOOD CELLS 6.5 10/3/uL (4.5-10.5)
[2016-08-15 05:37] LABS: HEMATOCRIT 29.5 % (36.0-48.0); MANUAL DIFF NO %
[2016-08-15 05:54] LABS: A/G RATIO 1.1 (0.7-1.9); ALBUMIN 3.1 G/DL (3.5-5.0); ALKALINE PHOSPHATASE 51 U/L (45-117); BUN (BLOOD UREA NITROGEN) 40 MG/DL (6-23); CALCIUM, SERUM 9.2 MG/DL (8.5-10.4); CHLORIDE, SERUM 112 MMOL/L (96-112); CO2 (CARBON DIOXIDE) 23 MMOL/L (24-34); CREATININE 1.03 MG/DL (0.55-1.02); GFR AFRICAN AMERICAN 66 ML/MIN (>=60); GFR NON AFRICAN AMERICAN 57 ML/MIN (>=60); GLOBULIN 2.8 G/DL (2.5-4.1); GLUCOSE, SERUM 122 MG/DL (60-99); POTASSIUM, SERUM 4.3 MMOL/L (3.5-5.3); SGOT(AST) 22 U/L (5-40); SGPT(ALT) 31 U/L (5-65); SODIUM, SERUM 146 MMOL/L (135-148); TOTAL BILIRUBIN 1.2 MG/DL (0-1.2); TOTAL PROTEIN 5.9 G/DL (6.0-8.5)
[2016-08-15 06:31] LABS: PROCALCITONIN 1.27 ng/mL (<0.5)
[2016-08-16 04:38] LABS: HEMATOCRIT 30.8 % (36.0-48.0); MEAN CORPUS HGB CONC 32.5 g/dL (32.0-36.0); MEAN CORPUSCULAR HEMOGLOB 25.6 pg (26.0-34.0); MEAN PLATELET VOLUME 10.2 fL (9.2-13.0); PLATELET COUNT 238 10/3/uL (150-400); RBC DISTRIBUTION WIDTH 17.4 % (12.0-16.0)
[2016-08-16 04:39] LABS: MANUAL DIFF YES %
[2016-08-16 04:47] LABS: CO2 (CARBON DIOXIDE) 26 MMOL/L (24-34); CREATININE 0.93 MG/DL (0.55-1.02); GFR AFRICAN AMERICAN 75 ML/MIN (>=60); GFR NON AFRICAN AMERICAN 64 ML/MIN (>=60); POTASSIUM, SERUM 3.8 MMOL/L (3.5-5.3)
[2016-08-16 04:48] LABS: CALCIUM, SERUM 9.3 MG/DL (8.5-10.4); GLUCOSE, SERUM 118 MG/DL (60-99)
[2016-08-16 04:53] LABS: BUN (BLOOD UREA NITROGEN) 30 MG/DL (6-23); CHLORIDE, SERUM 102 MMOL/L (96-112); SODIUM, SERUM 138 MMOL/L (135-148)
[2016-08-16 05:01] LABS: ANISOCYTOSIS 1+ (5-10/OIF) (0-5/OIF); BAND NEUTROPHILS 3 %; IMMATURE GRANS ABSOLUTE (CALC) 0.36 10/3/uL (0.0-0.11); LYMPHOCYTES 9 %; LYMPHOCYTES ABSOLUTE (CALC) 0.81 10/3/uL (0.67-4.30); METAMYELOCYTES 3 %; MONOCYTES 5 %; MONOCYTES ABSOLUTE (CALC) 0.45 10/3/uL (0.21-1.20); MYELOCYTES 1 %; NEUTROPHILS ABSOLUTE (CALC) 7.38 10/3/uL (2.02-8.40); PLATELET ESTIMATE ADQ (ADEQUATE); SEGMENTED NEUTROPHIL (0) 79 %; TOTAL NUCLEATED CELLS 100
[2016-08-17 05:49] LABS: HEMATOCRIT 32.5 % (36.0-48.0); HEMOGLOBIN 10.4 g/dL (12.0-16.0); MEAN CORPUSCULAR HEMOGLOB 25.2 pg (26.0-34.0); MEAN CORPUSCULAR VOLUME 78.7 fL (80-100); MEAN PLATELET VOLUME 9.4 fL (9.2-13.0); PLATELET COUNT 191 10/3/uL (150-400); RED CELL COUNT 4.13 10/6/uL (4.0-5.6); WHITE BLOOD CELLS 9.7 10/3/uL (4.5-10.5)
[2016-08-17 05:54] LABS: MANUAL DIFF YES %
[2016-08-17 06:05] LABS: CALCIUM, SERUM 9.6 MG/DL (8.5-10.4); CHLORIDE, SERUM 97 MMOL/L (96-112); CO2 (CARBON DIOXIDE) 26 MMOL/L (24-34); CREATININE 1.14 MG/DL (0.55-1.02); GFR AFRICAN AMERICAN 58 ML/MIN (>=60); GFR NON AFRICAN AMERICAN 50 ML/MIN (>=60); POTASSIUM, SERUM 3.7 MMOL/L (3.5-5.3); SODIUM, SERUM 135 MMOL/L (135-148)
[2016-08-17 06:09] LABS: BUN (BLOOD UREA NITROGEN) 35 MG/DL (6-23); GLUCOSE, SERUM 159 MG/DL (60-99)
[2016-08-17 06:19] LABS: INTERNATIONAL NORMAL RATI 1.1 UNITS (-); PROTIME (NOT ORD) 14.5 SEC (12.0-14.5)
[2016-08-17 07:50] LABS: ANISOCYTOSIS 1+ (5-10/OIF) (0-5/OIF); BAND NEUTROPHILS 8 %; IMMATURE GRANS ABSOLUTE (CALC) 0.78 10/3/uL (0.0-0.11); LYMPHOCYTES 7 %; LYMPHOCYTES ABSOLUTE (CALC) 0.68 10/3/uL (0.67-4.30); METAMYELOCYTES 7 %; MICROCYTES 1+ (5-10/OIF) (0-5/OIF); MONOCYTES 10 %; MONOCYTES ABSOLUTE (CALC) 0.97 10/3/uL (0.21-1.20); MYELOCYTES 1 %; NEUTROPHILS ABSOLUTE (CALC) 7.28 10/3/uL (2.02-8.40); PLATELET ESTIMATE ADQ (ADEQUATE); SEGMENTED NEUTROPHIL (0) 67 %; TOTAL NUCLEATED CELLS 100
[2016-08-17 11:34] LABS: PROCALCITONIN 0.26 ng/mL (<0.5)
[2016-08-17 12:39] LABS: FREE T4 1.67 NG/DL (0.76-1.46)
[2016-08-17 12:40] LABS: ULTRASENSITIVE TSH 0.056 MCIU/ML (0.358-3.740)
[2016-08-18 05:49] LABS: BUN (BLOOD UREA NITROGEN) 35 MG/DL (6-23); CALCIUM, SERUM 9.3 MG/DL (8.5-10.4); CHLORIDE, SERUM 98 MMOL/L (96-112); CO2 (CARBON DIOXIDE) 27 MMOL/L (24-34); CREATININE 0.87 MG/DL (0.55-1.02); GFR AFRICAN AMERICAN 81 ML/MIN (>=60); GFR NON AFRICAN AMERICAN 70 ML/MIN (>=60); GLUCOSE, SERUM 138 MG/DL (60-99); POTASSIUM, SERUM 4.4 MMOL/L (3.5-5.3); SODIUM, SERUM 135 MMOL/L (135-148)
[2016-08-18 06:02] LABS: HEMATOCRIT 31.7 % (36.0-48.0); HEMOGLOBIN 10.3 g/dL (12.0-16.0); MEAN CORPUS HGB CONC 32.5 g/dL (32.0-36.0); MEAN CORPUSCULAR HEMOGLOB 25.5 pg (26.0-34.0); MEAN CORPUSCULAR VOLUME 78.5 fL (80-100); MEAN PLATELET VOLUME 9.9 fL (9.2-13.0); PLATELET COUNT 191 10/3/uL (150-400); RBC DISTRIBUTION WIDTH 16.6 % (12.0-16.0); RED CELL COUNT 4.04 10/6/uL (4.0-5.6); WHITE BLOOD CELLS 13.5 10/3/uL (4.5-10.5)
[2016-08-18 06:07] LABS: INTERNATIONAL NORMAL RATI 1.1 UNITS (-)
[2016-08-18 06:08] LABS: MANUAL DIFF YES %
[2016-08-18 06:34] LABS: BAND NEUTROPHILS 10 %; IMMATURE GRANS ABSOLUTE (CALC) 1.22 10/3/uL (0.0-0.11); LYMPHOCYTES 5 %; LYMPHOCYTES ABSOLUTE (CALC) 0.68 10/3/uL (0.67-4.30); METAMYELOCYTES 8 %; MONOCYTES 1 %; MONOCYTES ABSOLUTE (CALC) 0.14 10/3/uL (0.21-1.20); MYELOCYTES 1 %; NEUTROPHILS ABSOLUTE (CALC) 11.48 10/3/uL (2.02-8.40); PLATELET ESTIMATE ADQ (ADEQUATE); SEGMENTED NEUTROPHIL (0) 75 %; TOTAL NUCLEATED CELLS 100; TOXIC GRANULATION 1+
[2016-08-18 06:35] LABS: RBC MORPHOLOGY NORM (NORMAL)
[2016-08-19 06:13] LABS: BUN (BLOOD UREA NITROGEN) 39 MG/DL (6-23); CALCIUM, SERUM 9.1 MG/DL (8.5-10.4); CHLORIDE, SERUM 99 MMOL/L (96-112); CO2 (CARBON DIOXIDE) 24 MMOL/L (24-34); CREATININE 0.98 MG/DL (0.55-1.02); GFR AFRICAN AMERICAN 70 ML/MIN (>=60); GFR NON AFRICAN AMERICAN 61 ML/MIN (>=60); GLUCOSE, SERUM 94 MG/DL (60-99); POTASSIUM, SERUM 4.1 MMOL/L (3.5-5.3); SODIUM, SERUM 136 MMOL/L (135-148)
[2016-08-20 06:20] LABS: CHLORIDE, SERUM 100 MMOL/L (96-112); CO2 (CARBON DIOXIDE) 27 MMOL/L (24-34); CREATININE 0.92 MG/DL (0.55-1.02); GFR AFRICAN AMERICAN 76 ML/MIN (>=60); GFR NON AFRICAN AMERICAN 65 ML/MIN (>=60); POTASSIUM, SERUM 4.5 MMOL/L (3.5-5.3); SODIUM, SERUM 136 MMOL/L (135-148)
[2016-08-20 06:22] LABS: BUN (BLOOD UREA NITROGEN) 32 MG/DL (6-23); GLUCOSE, SERUM 134 MG/DL (60-99)
[2016-08-20 06:34] LABS: HEMOGLOBIN 10.1 g/dL (12.0-16.0); MEAN CORPUS HGB CONC 31.6 g/dL (32.0-36.0); MEAN CORPUSCULAR HEMOGLOB 25.3 pg (26.0-34.0); MEAN CORPUSCULAR VOLUME 80.2 fL (80-100); PLATELET COUNT 186 10/3/uL (150-400); RBC DISTRIBUTION WIDTH 17.4 % (12.0-16.0); RED CELL COUNT 3.99 10/6/uL (4.0-5.6); WHITE BLOOD CELLS 18.9 10/3/uL (4.5-10.5)
[2016-08-20 06:37] LABS: MANUAL DIFF YES %
[2016-08-20 08:36] LABS: ANISOCYTOSIS 1+ (5-10/OIF) (0-5/OIF); BAND NEUTROPHILS 13 %; HYPOCHROMIA 1+ (3-10/OIF) (0-2/OIF); LYMPHOCYTES 7 %; LYMPHOCYTES ABSOLUTE (CALC) 1.32 10/3/uL (0.67-4.30); METAMYELOCYTES 7 %; MONOCYTES 6 %; MONOCYTES ABSOLUTE (CALC) 1.13 10/3/uL (0.21-1.20); MYELOCYTES 2 %; NEUTROPHILS ABSOLUTE (CALC) 14.74 10/3/uL (2.02-8.40); PLATELET ESTIMATE ADQ (ADEQUATE); SEGMENTED NEUTROPHIL (0) 65 %; TOTAL NUCLEATED CELLS 100
[2016-08-21 07:18] LABS: BUN (BLOOD UREA NITROGEN) 31 MG/DL (6-23); CALCIUM, SERUM 9.2 MG/DL (8.5-10.4); CHLORIDE, SERUM 98 MMOL/L (96-112); CO2 (CARBON DIOXIDE) 27 MMOL/L (24-34); CREATININE 0.94 MG/DL (0.55-1.02); GFR AFRICAN AMERICAN 74 ML/MIN (>=60); GFR NON AFRICAN AMERICAN 64 ML/MIN (>=60); GLUCOSE, SERUM 100 MG/DL (60-99); POTASSIUM, SERUM 4.3 MMOL/L (3.5-5.3); SODIUM, SERUM 137 MMOL/L (135-148)
[2016-08-22 06:49] LABS: HEMATOCRIT 31.7 % (36.0-48.0); HEMOGLOBIN 10.2 g/dL (12.0-16.0); MEAN CORPUS HGB CONC 32.2 g/dL (32.0-36.0); MEAN CORPUSCULAR HEMOGLOB 25.4 pg (26.0-34.0); MEAN CORPUSCULAR VOLUME 79.1 fL (80-100); MEAN PLATELET VOLUME 10.7 fL (9.2-13.0); PLATELET COUNT 168 10/3/uL (150-400); RBC DISTRIBUTION WIDTH 17.7 % (12.0-16.0); RED CELL COUNT 4.01 10/6/uL (4.0-5.6); WHITE BLOOD CELLS 16.4 10/3/uL (4.5-10.5)
[2016-08-22 06:55] LABS: MANUAL DIFF YES %
[2016-08-22 07:04] LABS: BUN (BLOOD UREA NITROGEN) 32 MG/DL (6-23); CALCIUM, SERUM 9.6 MG/DL (8.5-10.4); CHLORIDE, SERUM 96 MMOL/L (96-112); CO2 (CARBON DIOXIDE) 30 MMOL/L (24-34); CREATININE 0.85 MG/DL (0.55-1.02); GFR AFRICAN AMERICAN 83 ML/MIN (>=60); GFR NON AFRICAN AMERICAN 72 ML/MIN (>=60); GLUCOSE, SERUM 96 MG/DL (60-99); POTASSIUM, SERUM 4.2 MMOL/L (3.5-5.3); SODIUM, SERUM 136 MMOL/L (135-148)
[2016-08-22 07:44] LABS: ANISOCYTOSIS 1+ (5-10/OIF) (0-5/OIF); BAND NEUTROPHILS 4 %; LYMPHOCYTES 6 %; LYMPHOCYTES ABSOLUTE (CALC) 0.98 10/3/uL (0.67-4.30); MONOCYTES 4 %; MONOCYTES ABSOLUTE (CALC) 0.66 10/3/uL (0.21-1.20); NEUTROPHILS ABSOLUTE (CALC) 14.76 10/3/uL (2.02-8.40); PLATELET ESTIMATE ADQ (ADEQUATE); SEGMENTED NEUTROPHIL (0) 86 %; TOTAL NUCLEATED CELLS 100
[2016-08-23 05:44] LABS: HEMATOCRIT 30.8 % (36.0-48.0); HEMOGLOBIN 9.8 g/dL (12.0-16.0); MEAN CORPUS HGB CONC 31.8 g/dL (32.0-36.0); MEAN CORPUSCULAR HEMOGLOB 25.5 pg (26.0-34.0); MEAN CORPUSCULAR VOLUME 80.2 fL (80-100); MEAN PLATELET VOLUME 10.8 fL (9.2-13.0); PLATELET COUNT 124 10/3/uL (150-400); RBC DISTRIBUTION WIDTH 17.4 % (12.0-16.0); RED CELL COUNT 3.84 10/6/uL (4.0-5.6); WHITE BLOOD CELLS 11.6 10/3/uL (4.5-10.5)
[2016-08-23 05:48] LABS: MANUAL DIFF YES %
[2016-08-23 05:52] LABS: CALCIUM, SERUM 9.3 MG/DL (8.5-10.4); CHLORIDE, SERUM 97 MMOL/L (96-112); CO2 (CARBON DIOXIDE) 31 MMOL/L (24-34); CREATININE 0.93 MG/DL (0.55-1.02); GFR AFRICAN AMERICAN 75 ML/MIN (>=60); GFR NON AFRICAN AMERICAN 64 ML/MIN (>=60); POTASSIUM, SERUM 4.7 MMOL/L (3.5-5.3); SODIUM, SERUM 137 MMOL/L (135-148)
[2016-08-23 05:56] LABS: BUN (BLOOD UREA NITROGEN) 38 MG/DL (6-23); GLUCOSE, SERUM 137 MG/DL (60-99)
[2016-08-23 06:28] LABS: BAND NEUTROPHILS 6 %; IMMATURE GRANS ABSOLUTE (CALC) 0.12 10/3/uL (0.0-0.11); LYMPHOCYTES 3 %; LYMPHOCYTES ABSOLUTE (CALC) 0.35 10/3/uL (0.67-4.30); METAMYELOCYTES 1 %; NEUTROPHILS ABSOLUTE (CALC) 11.14 10/3/uL (2.02-8.40); SEGMENTED NEUTROPHIL (0) 90 %; TOTAL NUCLEATED CELLS 100
[2016-08-23 06:29] LABS: ANISOCYTOSIS 1+ (5-10/OIF) (0-5/OIF); PLATELET ESTIMATE SLT DEC (ADEQUATE); TOXIC GRANULATION 1+
[2016-08-24 07:02] LABS: BASOPHILS 0.2 %; BASOPHILS ABSOLUTE 0.04 10/3/uL (0.0-0.16); EOSINOPHILS 0 %; HEMATOCRIT 29.5 % (36.0-48.0); HEMOGLOBIN 9.6 g/dL (12.0-16.0); IMMATURE GRANULOCYTES 1.4 %; IMMATURE GRANULOCYTES ABSOLUTE 0.25 10/3/uL (0.0-0.11); LYMPHOCYTES 5.4 %; LYMPHOCYTES ABSOLUTE 0.94 10/3/uL (0.67-4.30); MANUAL DIFF NO %; MEAN CORPUS HGB CONC 32.5 g/dL (32.0-36.0); MEAN CORPUSCULAR HEMOGLOB 26.1 pg (26.0-34.0); MEAN CORPUSCULAR VOLUME 80.2 fL (80-100); MEAN PLATELET VOLUME 10.3 fL (9.2-13.0); MONOCYTES 6.6 %; MONOCYTES ABSOLUTE 1.15 10/3/uL (0.21-1.20); NEUTROPHILS 86.4 %; NEUTROPHILS ABSOLUTE 14.98 10/3/uL (2.02-8.40); PLATELET COUNT 121 10/3/uL (150-400); RBC DISTRIBUTION WIDTH 17.5 % (12.0-16.0); RED CELL COUNT 3.68 10/6/uL (4.0-5.6); WHITE BLOOD CELLS 17.4 10/3/uL (4.5-10.5)
[2016-08-24 07:21] LABS: ALBUMIN 2.7 G/DL (3.5-5.0); ALKALINE PHOSPHATASE 54 U/L (45-117); BUN (BLOOD UREA NITROGEN) 33 MG/DL (6-23); CALCIUM, SERUM 8.8 MG/DL (8.5-10.4); CHLORIDE, SERUM 100 MMOL/L (96-112); CO2 (CARBON DIOXIDE) 27 MMOL/L (24-34); CREATININE 0.69 MG/DL (0.55-1.02); GFR AFRICAN AMERICAN 106 ML/MIN (>=60); GFR NON AFRICAN AMERICAN 91 ML/MIN (>=60); GLOBULIN 2.8 G/DL (2.5-4.1); GLUCOSE, SERUM 93 MG/DL (60-99); POTASSIUM, SERUM 4.4 MMOL/L (3.5-5.3); SGOT(AST) 10 U/L (5-40); SGPT(ALT) 20 U/L (5-65); SODIUM, SERUM 135 MMOL/L (135-148); TOTAL BILIRUBIN 0.6 MG/DL (0-1.2); TOTAL PROTEIN 5.5 G/DL (6.0-8.5)
[2016-08-25 06:08] LABS: CHLORIDE, SERUM 99 MMOL/L (96-112); CO2 (CARBON DIOXIDE) 28 MMOL/L (24-34); CREATININE 0.72 MG/DL (0.55-1.02); GFR AFRICAN AMERICAN 102 ML/MIN (>=60); GFR NON AFRICAN AMERICAN 88 ML/MIN (>=60); GLUCOSE, SERUM 83 MG/DL (60-99); POTASSIUM, SERUM 5.1 MMOL/L (3.5-5.3); SODIUM, SERUM 137 MMOL/L (135-148)
[2016-08-25 06:09] LABS: BUN (BLOOD UREA NITROGEN) 28 MG/DL (6-23)
[2016-08-25 06:16] LABS: BASOPHILS 0.4 %; BASOPHILS ABSOLUTE 0.03 10/3/uL (0.0-0.16); EOSINOPHILS 0 %; HEMATOCRIT 28.4 % (36.0-48.0); HEMOGLOBIN 8.9 g/dL (12.0-16.0); IMMATURE GRANULOCYTES 1.9 %; IMMATURE GRANULOCYTES ABSOLUTE 0.16 10/3/uL (0.0-0.11); LYMPHOCYTES 12.9 %; LYMPHOCYTES ABSOLUTE 1.08 10/3/uL (0.67-4.30); MEAN CORPUS HGB CONC 31.3 g/dL (32.0-36.0); MEAN CORPUSCULAR HEMOGLOB 25.4 pg (26.0-34.0); MEAN CORPUSCULAR VOLUME 80.9 fL (80-100); MEAN PLATELET VOLUME 10.6 fL (9.2-13.0); MONOCYTES ABSOLUTE 0.59 10/3/uL (0.21-1.20); NEUTROPHILS 77.8 %; NEUTROPHILS ABSOLUTE 6.53 10/3/uL (2.02-8.40); PLATELET COUNT 92 10/3/uL (150-400); RBC DISTRIBUTION WIDTH 17.5 % (12.0-16.0); RED CELL COUNT 3.51 10/6/uL (4.0-5.6)
[2016-08-25 06:22] LABS: MANUAL DIFF NO %; WHITE BLOOD CELLS 8.4 10/3/uL (4.5-10.5)
[2016-08-25 06:45] LABS: ANISOCYTOSIS 1+ (5-10/OIF) (0-5/OIF); PLATELET ESTIMATE DEC (ADEQUATE)
[2016-08-25 06:46] LABS: POLYCHROMASIA 1+ (2-5/OIF) (0-1/OIF)
[2016-08-26 08:42] LABS: FREE T4 1.37 NG/DL (0.76-1.46)
[2016-08-26 08:43] LABS: ULTRASENSITIVE TSH 0.024 MCIU/ML (0.358-3.740)
[2016-08-27 05:39] LABS: BASOPHILS 0.1 %; BASOPHILS ABSOLUTE 0.01 10/3/uL (0.0-0.16); EOSINOPHILS 0.1 %; EOSINOPHILS ABSOLUTE 0.01 10/3/uL (0.0-0.53); HEMATOCRIT 28.4 % (36.0-48.0); LYMPHOCYTES 1.9 %; LYMPHOCYTES ABSOLUTE 0.19 10/3/uL (0.67-4.30); MEAN CORPUS HGB CONC 31.7 g/dL (32.0-36.0); MEAN CORPUSCULAR HEMOGLOB 25.6 pg (26.0-34.0); MEAN CORPUSCULAR VOLUME 80.7 fL (80-100); MEAN PLATELET VOLUME 11.1 fL (9.2-13.0); NEUTROPHILS 94.9 %; NEUTROPHILS ABSOLUTE 9.35 10/3/uL (2.02-8.40); PLATELET COUNT 89 10/3/uL (150-400); RBC DISTRIBUTION WIDTH 17.5 % (12.0-16.0); RED CELL COUNT 3.52 10/6/uL (4.0-5.6); WHITE BLOOD CELLS 9.9 10/3/uL (4.5-10.5)
[2016-08-27 05:46] LABS: MANUAL DIFF NO %
[2016-08-27 05:52] LABS: CHLORIDE, SERUM 99 MMOL/L (96-112); CO2 (CARBON DIOXIDE) 25 MMOL/L (24-34); CREATININE 0.87 MG/DL (0.55-1.02); GFR AFRICAN AMERICAN 81 ML/MIN (>=60); GFR NON AFRICAN AMERICAN 70 ML/MIN (>=60); POTASSIUM, SERUM 5.3 MMOL/L (3.5-5.3); SODIUM, SERUM 135 MMOL/L (135-148)
[2016-08-27 05:53] LABS: BUN (BLOOD UREA NITROGEN) 22 MG/DL (6-23); GLUCOSE, SERUM 186 MG/DL (60-99)
[2016-08-28 14:01] LABS: HEMATOCRIT 30.4 % (36.0-48.0); HEMOGLOBIN 9.5 g/dL (12.0-16.0); MANUAL DIFF YES %; MEAN CORPUS HGB CONC 31.3 g/dL (32.0-36.0); MEAN CORPUSCULAR HEMOGLOB 25.1 pg (26.0-34.0); MEAN CORPUSCULAR VOLUME 80.2 fL (80-100); MEAN PLATELET VOLUME 10.9 fL (9.2-13.0); PLATELET COUNT 121 10/3/uL (150-400); RED CELL COUNT 3.79 10/6/uL (4.0-5.6); WHITE BLOOD CELLS 14.2 10/3/uL (4.5-10.5)
[2016-08-28 14:14] LABS: BUN (BLOOD UREA NITROGEN) 27 MG/DL (6-23); CALCIUM, SERUM 9.1 MG/DL (8.5-10.4); CHLORIDE, SERUM 98 MMOL/L (96-112); CO2 (CARBON DIOXIDE) 29 MMOL/L (24-34); CREATININE 1.39 MG/DL (0.55-1.02); GFR AFRICAN AMERICAN 46 ML/MIN (>=60); GFR NON AFRICAN AMERICAN 40 ML/MIN (>=60); GLUCOSE, SERUM 81 MG/DL (60-99); POTASSIUM, SERUM 5.1 MMOL/L (3.5-5.3); SODIUM, SERUM 134 MMOL/L (135-148)
[2016-08-28 14:26] LABS: BAND NEUTROPHILS 18 %; IMMATURE GRANS ABSOLUTE (CALC) 0.28 10/3/uL (0.0-0.11); LYMPHOCYTES 7 %; LYMPHOCYTES ABSOLUTE (CALC) 0.99 10/3/uL (0.67-4.30); METAMYELOCYTES 2 %; MONOCYTES 2 %; MONOCYTES ABSOLUTE (CALC) 0.28 10/3/uL (0.21-1.20); NEUTROPHILS ABSOLUTE (CALC) 12.64 10/3/uL (2.02-8.40); SEGMENTED NEUTROPHIL (0) 71 %; TOTAL NUCLEATED CELLS 100
[2016-08-28 14:27] LABS: ANISOCYTOSIS 1+ (5-10/OIF) (0-5/OIF); HYPOCHROMIA 1+ (3-10/OIF) (0-2/OIF); MICROCYTES 1+ (5-10/OIF) (0-5/OIF); PLATELET ESTIMATE SLT DEC (ADEQUATE)
[2016-08-28 15:07] LABS: PROCALCITONIN 0.19 ng/mL (<0.5)
[2016-08-28 16:42] LABS: ASCORBIC ACID (UR NOT ORDER) NEG (NEG); BILIRUBIN, URINE NEGATIVE (NEG); KETONE, URINE NEGATIVE (NEG); LEUKOCYTE ESTERASE(NOT OR TRACE (NEG); WBC (NOT ORDERED) (RFLEX) 5 (0-5)
[2016-08-28 17:46] LABS: INFLUENZA A SCREEN POSITIVE (NEGATIVE); INFLUENZA B SCREEN NEGATIVE (NEGATIVE)
[2016-08-29 06:36] LABS: BASOPHILS 0.2 %; BASOPHILS ABSOLUTE 0.03 10/3/uL (0.0-0.16); EOSINOPHILS 0.1 %; EOSINOPHILS ABSOLUTE 0.02 10/3/uL (0.0-0.53); HEMATOCRIT 31.4 % (36.0-48.0); HEMOGLOBIN 10.2 g/dL (12.0-16.0); IMMATURE GRANULOCYTES 1.9 %; IMMATURE GRANULOCYTES ABSOLUTE 0.31 10/3/uL (0.0-0.11); LYMPHOCYTES 3.5 %; LYMPHOCYTES ABSOLUTE 0.58 10/3/uL (0.67-4.30); MANUAL DIFF NO %; MEAN CORPUS HGB CONC 32.5 g/dL (32.0-36.0); MEAN CORPUSCULAR HEMOGLOB 26.1 pg (26.0-34.0); MEAN CORPUSCULAR VOLUME 80.3 fL (80-100); MEAN PLATELET VOLUME 10.3 fL (9.2-13.0); MONOCYTES 2.4 %; NEUTROPHILS 91.9 %; NEUTROPHILS ABSOLUTE 15.02 10/3/uL (2.02-8.40); PLATELET COUNT 90 10/3/uL (150-400); RBC DISTRIBUTION WIDTH 17.9 % (12.0-16.0); RED CELL COUNT 3.91 10/6/uL (4.0-5.6); WHITE BLOOD CELLS 16.4 10/3/uL (4.5-10.5)
[2016-08-29 06:53] LABS: BUN (BLOOD UREA NITROGEN) 29 MG/DL (6-23); CALCIUM, SERUM 8.5 MG/DL (8.5-10.4); CHLORIDE, SERUM 99 MMOL/L (96-112); CREATININE 1.22 MG/DL (0.55-1.02); GFR AFRICAN AMERICAN 54 ML/MIN (>=60); GFR NON AFRICAN AMERICAN 46 ML/MIN (>=60); GLUCOSE, SERUM 91 MG/DL (60-99); SODIUM, SERUM 133 MMOL/L (135-148)
[2016-08-29 06:55] LABS: CO2 (CARBON DIOXIDE) 22 MMOL/L (24-34); POTASSIUM, SERUM 4.7 MMOL/L (3.5-5.3)
[2016-08-29 23:31] LABS: BE (BASE EXCESS) -1.9 MEQ/L (0 +/- 2.5); CARBOXYHEMOGLOBIN 0.3 % (0-3); DEVICE NRB; HCO3 (ACTUAL BICARBONATE) 23.7 MEQ/L (23-27); INSTRUMENT SERIAL # 35151; METHEMOGLOBIN 0.4 % (0-3); O2 CONTENT 15.2 VOL% (18-24); OPERATOR ID 17370; PCO2 (CO2 TENSION) 44 MMHG (35-45); PO2 (O2 TENSION) 116 MMHG (79-93); SAMPLE Arterial; pH 7.35 (7.37-7.43)
[2016-08-29 23:32] LABS: ALLENS TEST Pos
[2016-08-30 00:07] LABS: TROPONIN I <0.02 NG/ML (<0.05)
[2016-08-30 00:48] LABS: PROCALCITONIN 0.72 ng/mL (<0.5)
[2016-08-30 02:00] LABS: CALCIUM, SERUM 8.8 MG/DL (8.5-10.4); CHLORIDE, SERUM 100 MMOL/L (96-112); CO2 (CARBON DIOXIDE) 22 MMOL/L (24-34); CREATININE 1.43 MG/DL (0.55-1.02); GFR AFRICAN AMERICAN 44 ML/MIN (>=60); GFR NON AFRICAN AMERICAN 38 ML/MIN (>=60); POTASSIUM, SERUM 4.9 MMOL/L (3.5-5.3); SODIUM, SERUM 136 MMOL/L (135-148)
[2016-08-30 02:01] LABS: BUN (BLOOD UREA NITROGEN) 34 MG/DL (6-23); GLUCOSE, SERUM 112 MG/DL (60-99)
[2016-08-30 10:03] LABS: FREE T4 1.34 NG/DL (0.76-1.46); TROPONIN I 0.03 NG/ML (<0.05)
[2016-08-30 12:18] LABS: BASOPHILS 0.3 %; BASOPHILS ABSOLUTE 0.03 10/3/uL (0.0-0.16); EOSINOPHILS 0.4 %; EOSINOPHILS ABSOLUTE 0.04 10/3/uL (0.0-0.53); LYMPHOCYTES ABSOLUTE 0.59 10/3/uL (0.67-4.30); MEAN CORPUS HGB CONC 31.5 g/dL (32.0-36.0); MEAN CORPUSCULAR HEMOGLOB 25.1 pg (26.0-34.0); MEAN CORPUSCULAR VOLUME 79.6 fL (80-100); MONOCYTES 2.3 %; MONOCYTES ABSOLUTE 0.23 10/3/uL (0.21-1.20); PLATELET COUNT 98 10/3/uL (150-400); RBC DISTRIBUTION WIDTH 17.9 % (12.0-16.0); RED CELL COUNT 3.19 10/6/uL (4.0-5.6); WHITE BLOOD CELLS 9.9 10/3/uL (4.5-10.5)
[2016-08-30 12:20] LABS: HEMATOCRIT 25.4 % (36.0-48.0); MANUAL DIFF NO %
[2016-08-30 13:28] LABS: ALLENS TEST Pos; BE (BASE EXCESS) 1.6 MEQ/L (0 +/- 2.5); CARBOXYHEMOGLOBIN 0.3 % (0-3); DEVICE NC; HCO3 (ACTUAL BICARBONATE) 27.6 MEQ/L (23-27); HEMOBLOGIN CONTENT 8.9 G/DL (12-16); INSTRUMENT SERIAL # 35151; METHEMOGLOBIN 0.4 % (0-3); O2 CONTENT 11.9 VOL% (18-24); PCO2 (CO2 TENSION) 50 MMHG (35-45); PO2 (O2 TENSION) 82 MMHG (79-93); SAMPLE Arterial; pH 7.36 (7.37-7.43)
[2016-08-30 17:04] LABS: HEMATOCRIT 25.2 % (36.0-48.0)
[2016-08-30 22:36] LABS: ALLENS TEST Pos; BE (BASE EXCESS) 1.5 MEQ/L (0 +/- 2.5); CARBOXYHEMOGLOBIN 0.7 % (0-3); DEVICE NC; HCO3 (ACTUAL BICARBONATE) 26.9 MEQ/L (23-27); HEMOBLOGIN CONTENT 7.7 G/DL (12-16); INSTRUMENT SERIAL # 8083; METHEMOGLOBIN 0.1 % (0-3); O2 CONTENT 10.7 VOL% (18-24); OPERATOR ID 30013; PCO2 (CO2 TENSION) 47 MMHG (35-45); PO2 (O2 TENSION) 111 MMHG (79-93); SAMPLE Arterial; pH 7.38 (7.37-7.43)
[2016-08-31 05:40] LABS: BASOPHILS 0.2 %; BASOPHILS ABSOLUTE 0.01 10/3/uL (0.0-0.16); EOSINOPHILS 0.9 %; EOSINOPHILS ABSOLUTE 0.05 10/3/uL (0.0-0.53); HEMOGLOBIN 7.3 g/dL (12.0-16.0); IMMATURE GRANULOCYTES ABSOLUTE 0.06 10/3/uL (0.0-0.11); LYMPHOCYTES 11.5 %; LYMPHOCYTES ABSOLUTE 0.67 10/3/uL (0.67-4.30); MEAN CORPUS HGB CONC 32.3 g/dL (32.0-36.0); MEAN CORPUSCULAR HEMOGLOB 25.9 pg (26.0-34.0); MEAN CORPUSCULAR VOLUME 80.1 fL (80-100); MEAN PLATELET VOLUME 9.9 fL (9.2-13.0); MONOCYTES 3.9 %; MONOCYTES ABSOLUTE 0.23 10/3/uL (0.21-1.20); NEUTROPHILS 82.5 %; NEUTROPHILS ABSOLUTE 4.83 10/3/uL (2.02-8.40); PLATELET COUNT 88 10/3/uL (150-400); RED CELL COUNT 2.82 10/6/uL (4.0-5.6)
[2016-08-31 05:46] LABS: HEMATOCRIT 22.6 % (36.0-48.0); WHITE BLOOD CELLS 5.9 10/3/uL (4.5-10.5)
[2016-08-31 05:47] LABS: MANUAL DIFF NO %
[2016-08-31 05:54] LABS: BUN (BLOOD UREA NITROGEN) 32 MG/DL (6-23); CALCIUM, SERUM 8.5 MG/DL (8.5-10.4); CHLORIDE, SERUM 102 MMOL/L (96-112); CO2 (CARBON DIOXIDE) 26 MMOL/L (24-34); POTASSIUM, SERUM 4.1 MMOL/L (3.5-5.3); SODIUM, SERUM 135 MMOL/L (135-148)
[2016-08-31 05:58] LABS: CREATININE 0.88 MG/DL (0.55-1.02); GFR AFRICAN AMERICAN 80 ML/MIN (>=60); GFR NON AFRICAN AMERICAN 69 ML/MIN (>=60); GLUCOSE, SERUM 89 MG/DL (60-99)
[2016-08-31 06:28] LABS: PROCALCITONIN 0.79 ng/mL (<0.5)
[2016-08-31 09:58] LABS: RETICULOCYTE COUNT 0.7 % (0.5-2.9); RETICULOCYTE COUNT ABSOLUTE 19.8 10/3/uL (20.2-119.8)
[2016-08-31 18:01] LABS: HEMATOCRIT 23.5 % (36.0-48.0); HEMOGLOBIN 7.5 g/dL (12.0-16.0)
[2016-09-01 07:05] LABS: HEMATOCRIT 25.5 % (36.0-48.0); HEMOGLOBIN 7.9 g/dL (12.0-16.0); MEAN CORPUSCULAR HEMOGLOB 24.4 pg (26.0-34.0); MEAN CORPUSCULAR VOLUME 78.7 fL (80-100); MEAN PLATELET VOLUME 9.6 fL (9.2-13.0); PLATELET COUNT 105 10/3/uL (150-400); RBC DISTRIBUTION WIDTH 17.9 % (12.0-16.0); RED CELL COUNT 3.24 10/6/uL (4.0-5.6); WHITE BLOOD CELLS 5.7 10/3/uL (4.5-10.5)
[2016-09-01 07:08] LABS: MANUAL DIFF YES %
[2016-09-01 07:18] LABS: CALCIUM, SERUM 8.7 MG/DL (8.5-10.4); CHLORIDE, SERUM 103 MMOL/L (96-112); CO2 (CARBON DIOXIDE) 26 MMOL/L (24-34); GFR AFRICAN AMERICAN 111 ML/MIN (>=60); GFR NON AFRICAN AMERICAN 96 ML/MIN (>=60); POTASSIUM, SERUM 3.9 MMOL/L (3.5-5.3); SODIUM, SERUM 139 MMOL/L (135-148)
[2016-09-01 07:19] LABS: BUN (BLOOD UREA NITROGEN) 18 MG/DL (6-23); GLUCOSE, SERUM 107 MG/DL (60-99)
[2016-09-01 07:39] LABS: BAND NEUTROPHILS 1 %; LYMPHOCYTES 15 %; LYMPHOCYTES ABSOLUTE (CALC) 0.86 10/3/uL (0.67-4.30); MONOCYTES 3 %; MONOCYTES ABSOLUTE (CALC) 0.17 10/3/uL (0.21-1.20); NEUTROPHILS ABSOLUTE (CALC) 4.67 10/3/uL (2.02-8.40); SEGMENTED NEUTROPHIL (0) 81 %; TOTAL NUCLEATED CELLS 100
[2016-09-01 07:40] LABS: ANISOCYTOSIS 1+ (5-10/OIF) (0-5/OIF); HYPOCHROMIA 1+ (3-10/OIF) (0-2/OIF); OVALOCYTES 1+ (3-10/OIF) (0-2/OIF); PLATELET ESTIMATE SLT DEC (ADEQUATE)
[2016-09-01 07:41] LABS: MICROCYTES 1+ (5-10/OIF) (0-5/OIF)
[2016-09-02 04:49] LABS: HEMOGLOBIN 7.2 g/dL (12.0-16.0); MEAN CORPUS HGB CONC 31.9 g/dL (32.0-36.0); MEAN CORPUSCULAR VOLUME 78.5 fL (80-100); MEAN PLATELET VOLUME 9.4 fL (9.2-13.0); PLATELET COUNT 105 10/3/uL (150-400); RBC DISTRIBUTION WIDTH 17.4 % (12.0-16.0); RED CELL COUNT 2.88 10/6/uL (4.0-5.6)
[2016-09-02 04:50] LABS: HEMATOCRIT 22.6 % (36.0-48.0); MANUAL DIFF YES %
[2016-09-02 05:01] LABS: BUN (BLOOD UREA NITROGEN) 10 MG/DL (6-23); CALCIUM, SERUM 8.6 MG/DL (8.5-10.4); CHLORIDE, SERUM 98 MMOL/L (96-112); CO2 (CARBON DIOXIDE) 29 MMOL/L (24-34); CREATININE 0.49 MG/DL (0.55-1.02); GFR AFRICAN AMERICAN 118 ML/MIN (>=60); GFR NON AFRICAN AMERICAN 102 ML/MIN (>=60); GLUCOSE, SERUM 103 MG/DL (60-99); POTASSIUM, SERUM 3.4 MMOL/L (3.5-5.3); SODIUM, SERUM 139 MMOL/L (135-148)
[2016-09-02 05:09] LABS: BAND NEUTROPHILS 3 %; LYMPHOCYTES 10 %; MONOCYTES 2 %; MONOCYTES ABSOLUTE (CALC) 0.08 10/3/uL (0.21-1.20); NEUTROPHILS ABSOLUTE (CALC) 3.52 10/3/uL (2.02-8.40); SEGMENTED NEUTROPHIL (0) 85 %; TOTAL NUCLEATED CELLS 100
[2016-09-02 05:11] LABS: ANISOCYTOSIS 1+ (5-10/OIF) (0-5/OIF); HELMET CELLS OCC (0-2/OIF); HYPOCHROMIA 1+ (3-10/OIF) (0-2/OIF); PLATELET ESTIMATE SLT DEC (ADEQUATE); SCHISTOCYTES OCC (0-2/OIF)
[2016-09-03 06:45] LABS: BASOPHILS 0.7 %; BASOPHILS ABSOLUTE 0.03 10/3/uL (0.0-0.16); EOSINOPHILS 1.7 %; EOSINOPHILS ABSOLUTE 0.08 10/3/uL (0.0-0.53); HEMATOCRIT 24.7 % (36.0-48.0); HEMOGLOBIN 7.9 g/dL (12.0-16.0); IMMATURE GRANULOCYTES 4.6 %; IMMATURE GRANULOCYTES ABSOLUTE 0.21 10/3/uL (0.0-0.11); LYMPHOCYTES 18.9 %; LYMPHOCYTES ABSOLUTE 0.87 10/3/uL (0.67-4.30); MEAN CORPUSCULAR HEMOGLOB 25.8 pg (26.0-34.0); MEAN CORPUSCULAR VOLUME 80.7 fL (80-100); MEAN PLATELET VOLUME 9.2 fL (9.2-13.0); MONOCYTES 6.7 %; MONOCYTES ABSOLUTE 0.31 10/3/uL (0.21-1.20); NEUTROPHILS 67.4 %; RBC DISTRIBUTION WIDTH 17.2 % (12.0-16.0); RED CELL COUNT 3.06 10/6/uL (4.0-5.6); WHITE BLOOD CELLS 4.6 10/3/uL (4.5-10.5)
[2016-09-03 06:50] LABS: MANUAL DIFF NO %; PLATELET COUNT 140 10/3/uL (150-400)
[2016-09-03 07:46] LABS: BUN (BLOOD UREA NITROGEN) 11 MG/DL (6-23); CHLORIDE, SERUM 96 MMOL/L (96-112); CO2 (CARBON DIOXIDE) 31 MMOL/L (24-34); CREATININE 0.53 MG/DL (0.55-1.02); GFR AFRICAN AMERICAN 115 ML/MIN (>=60); GFR NON AFRICAN AMERICAN 100 ML/MIN (>=60); GLUCOSE, SERUM 103 MG/DL (60-99); POTASSIUM, SERUM 3.2 MMOL/L (3.5-5.3); SODIUM, SERUM 138 MMOL/L (135-148)
[2016-09-04 04:28] LABS: HEMOGLOBIN 7.7 g/dL (12.0-16.0); MANUAL DIFF YES %; MEAN CORPUS HGB CONC 32.1 g/dL (32.0-36.0); MEAN CORPUSCULAR HEMOGLOB 26.2 pg (26.0-34.0); MEAN CORPUSCULAR VOLUME 81.6 fL (80-100); PLATELET COUNT 169 10/3/uL (150-400); RBC DISTRIBUTION WIDTH 17.4 % (12.0-16.0); RED CELL COUNT 2.94 10/6/uL (4.0-5.6); WHITE BLOOD CELLS 4.7 10/3/uL (4.5-10.5)
[2016-09-04 04:56] LABS: BUN (BLOOD UREA NITROGEN) 12 MG/DL (6-23); CALCIUM, SERUM 8.6 MG/DL (8.5-10.4); CHLORIDE, SERUM 95 MMOL/L (96-112); CREATININE 0.58 MG/DL (0.55-1.02); GFR AFRICAN AMERICAN 112 ML/MIN (>=60); GFR NON AFRICAN AMERICAN 97 ML/MIN (>=60); SODIUM, SERUM 136 MMOL/L (135-148)
[2016-09-04 04:57] LABS: CO2 (CARBON DIOXIDE) 36 MMOL/L (24-34); GLUCOSE, SERUM 155 MG/DL (60-99); POTASSIUM, SERUM 3.9 MMOL/L (3.5-5.3)
[2016-09-04 06:51] LABS: ANISOCYTOSIS 1+ (5-10/OIF) (0-5/OIF); BAND NEUTROPHILS 3 %; EOSINOPHILS 1 %; EOSINOPHILS ABSOLUTE (CALC) 0.05 10/3/uL (0.0-0.53); IMMATURE GRANS ABSOLUTE (CALC) 0.05 10/3/uL (0.0-0.11); LYMPHOCYTES 11 %; LYMPHOCYTES ABSOLUTE (CALC) 0.52 10/3/uL (0.67-4.30); MONOCYTES 1 %; MONOCYTES ABSOLUTE (CALC) 0.05 10/3/uL (0.21-1.20); NEUTROPHILS ABSOLUTE (CALC) 4.04 10/3/uL (2.02-8.40); OVALOCYTES 1+ (3-10/OIF) (0-2/OIF); PLATELET ESTIMATE ADQ (ADEQUATE); SEGMENTED NEUTROPHIL (0) 84 %; TOTAL NUCLEATED CELLS 100
[2016-09-04 06:52] LABS: POIKILOCYTOSIS 1+ (5-10/OIF) (0-5/OIF); TEARDROP SHAPED RBCS FEW (3-10/OIF)
[2016-09-05 04:12] LABS: CALCIUM, SERUM 8.6 MG/DL (8.5-10.4); CHLORIDE, SERUM 91 MMOL/L (96-112); CO2 (CARBON DIOXIDE) 38 MMOL/L (24-34); CREATININE 0.74 MG/DL (0.55-1.02); FREE T4 2.15 NG/DL (0.76-1.46); GFR AFRICAN AMERICAN 99 ML/MIN (>=60); GFR NON AFRICAN AMERICAN 85 ML/MIN (>=60); POTASSIUM, SERUM 4.2 MMOL/L (3.5-5.3); SODIUM, SERUM 136 MMOL/L (135-148)
[2016-09-05 04:15] LABS: BUN (BLOOD UREA NITROGEN) 20 MG/DL (6-23); GLUCOSE, SERUM 195 MG/DL (60-99); ULTRASENSITIVE TSH < 0.005 MCIU/ML (0.358-3.740)
[2016-09-06 04:16] LABS: BASOPHILS 0.2 %; BASOPHILS ABSOLUTE 0.01 10/3/uL (0.0-0.16); EOSINOPHILS 0.7 %; EOSINOPHILS ABSOLUTE 0.04 10/3/uL (0.0-0.53); HEMATOCRIT 23.9 % (36.0-48.0); HEMOGLOBIN 7.3 g/dL (12.0-16.0); IMMATURE GRANULOCYTES 2.5 %; IMMATURE GRANULOCYTES ABSOLUTE 0.14 10/3/uL (0.0-0.11); LYMPHOCYTES 17.3 %; LYMPHOCYTES ABSOLUTE 0.98 10/3/uL (0.67-4.30); MEAN CORPUS HGB CONC 30.5 g/dL (32.0-36.0); MEAN CORPUSCULAR HEMOGLOB 25.3 pg (26.0-34.0); MEAN CORPUSCULAR VOLUME 82.7 fL (80-100); MEAN PLATELET VOLUME 9.6 fL (9.2-13.0); NEUTROPHILS 72.3 %; NEUTROPHILS ABSOLUTE 4.11 10/3/uL (2.02-8.40); RBC DISTRIBUTION WIDTH 17.6 % (12.0-16.0); RED CELL COUNT 2.89 10/6/uL (4.0-5.6); WHITE BLOOD CELLS 5.7 10/3/uL (4.5-10.5)
[2016-09-06 04:17] LABS: MANUAL DIFF NO %; PLATELET COUNT 232 10/3/uL (150-400)
[2016-09-06 04:34] LABS: ALBUMIN 2.2 G/DL (3.5-5.0); CALCIUM, SERUM 8.9 MG/DL (8.5-10.4); CHLORIDE, SERUM 92 MMOL/L (96-112); CO2 (CARBON DIOXIDE) 37 MMOL/L (24-34); CREATININE 0.79 MG/DL (0.55-1.02); GFR AFRICAN AMERICAN 91 ML/MIN (>=60); GFR NON AFRICAN AMERICAN 79 ML/MIN (>=60); PHOSPHORUS, SERUM 2.3 MG/DL (2.5-4.5); POTASSIUM, SERUM 4.1 MMOL/L (3.5-5.3); SODIUM, SERUM 136 MMOL/L (135-148)
[2016-09-06 04:37] LABS: BUN (BLOOD UREA NITROGEN) 26 MG/DL (6-23); GLUCOSE, SERUM 103 MG/DL (60-99)
== END 2016-09-06 15:51 | DRG 388 ==
LOC: ER 20:06 → 6NO 20:26
PROVIDERS: Emergency Medicine; Hospitalist; Internal Medicine; Internal Medicine Gastroenterology; Nurse Practitioner Family; Nurse Practitioner Gerontology
PROC: 0DB38ZX Excision of Lower Esophagus, Via Natural or Artificial Opening Endoscopic, Diagnostic (ICD-10-PCS; principal; 2016-08-18 08:30)
PROC: 0DB28ZX Excision of Middle Esophagus, Via Natural or Artificial Opening Endoscopic, Diagnostic (ICD-10-PCS; 2016-08-18 08:30)
PROC: 0D7P8ZZ Dilation of Rectum, Via Natural or Artificial Opening Endoscopic (ICD-10-PCS; 2016-08-22)
PROC: 02HV33Z Insertion of Infusion Device into Superior Vena Cava, Percutaneous Approach (ICD-10-PCS; 2016-08-30)
PROC: 4A02X4A Measurement of Cardiac Electrical Activity, Guidance, External Approach (ICD-10-PCS; 2016-08-30)
DX: K56.60 Unspecified intestinal obstruction (principal); J96.91 Respiratory failure, unspecified with hypoxia; J69.0 Pneumonitis due to inhalation of food and vomit; N17.9 Acute kidney failure, unspecified; G92 Toxic encephalopathy; K22.2 Esophageal obstruction; J68.0 Bronchitis and pneumonitis due to chemicals, gases, fumes and vapors; K59.39 Other megacolon; J44.1 Chronic obstructive pulmonary disease with (acute) exacerbation; E24.2 Drug-induced Cushing's syndrome; I48.0 Paroxysmal atrial fibrillation; G25.81 Restless legs syndrome; K31.84 Gastroparesis; R13.12 Dysphagia, oropharyngeal phase; R33.9 Retention of urine, unspecified; K21.9 Gastro-esophageal reflux disease without esophagitis; G89.4 Chronic pain syndrome; J10.1 Influenza due to other identified influenza virus with other respiratory manifestations; D50.9 Iron deficiency anemia, unspecified; J45.909 Unspecified asthma, uncomplicated; E05.90 Thyrotoxicosis, unspecified without thyrotoxic crisis or storm; J98.01 Acute bronchospasm; I25.2 Old myocardial infarction; M10.9 Gout, unspecified; E83.42 Hypomagnesemia; T38.0X5A Adverse effect of glucocorticoids and synthetic analogues, initial encounter; Z90.710 Acquired absence of both cervix and uterus; Z94.9 Transplanted organ and tissue status, unspecified; Z86.010 Personal history of colon polyps; Z88.0 Allergy status to penicillin; Z88.1 Allergy status to other antibiotic agents; Z88.8 Allergy status to other drugs, medicaments and biological substances; Z88.2 Allergy status to sulfonamides; Z87.891 Personal history of nicotine dependence
CPT/HCPCS: 36569; 36600; 70450; 70490; 71010; 71020; 71250; 72125; 73030-RT; 73630-RT; 74000; 74020; 74176; 74230; 80048; 80053; 80069; 80202; 81001; 82272; 82550; 82553; 82607; 82728; 82746; 82805; 83605; 83615; 83735; 83880; 84145; 84439; 84443; 84481; 84484; 85014; 85018; 85025; 85045; 85610; 85730; 86255; 87040; 87070; 87205; 87449; 87804; 88305; 92610-GN; 92611-GN; 93005; 93971; 94640; 94660; 94667; 94668; 96372; 97110-GO; 97110-GP; 97116-GP; 97162-GP; 97164-GP; 97166-GO; 97530-GP; 97535-GO; 99285; A9270-GY; C1751; C9113; G0378; J0360; J0456; J0692; J1170; J1450; J1885; J1940; J2405; J2550; J2765; J2916; J2920; J2930; J2997; J3370

== ENCOUNTER 2016-10-20 15:39 | Inpatient (IN) | payer BC ==
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
--- NOTE | ~2016-10-20 | DS ---
Discharge Summary [facility] [address] [place]. [address] NAME: CHAPIN GUTIERRES : 52 STATUS : DIS IN PAT#: [id number] AGE: 66 ADM/REG DATE : 10/20/16 MR#: [id number] REPORT SERV DATE: 11/09/16 DICTATED BY: DATE: REPORT STATUS : Draft TRANSCRIBED BY: MODL DATE: 11/08/16 ADMISSION DATE: 10/20/2016 DISCHARGE DATE: 11/08/2016 DISCHARGE DIAGNOSES: 1. Acute on chronic hypoxic respiratory failure. 2. Chronic obstructive pulmonary disease exacerbation. 3. Esophageal stricture status post dilatation. 4. Neutropenic fever due to methimazole. 5. Aspergillus in sputum. 6. Hyperthyroidism. 7. Paroxysmal atrial fibrillation. 8. Anemia of chronic disease. 9. Silent aspiration. CONSULTING PHYSICIAN: Include Dr. Esquivel, Pulmonology. DISCHARGE MEDICATIONS: Include Eliquis 2.5 mg p.o. b.i.d.; aspirin 81 mg p.o. daily; Astepro nasal spray, two sprays b.i.d. in each nostril; Artificial Tears; Caltrate 600 mg p.o. b.i.d.; Cardizem 360 mg p.o. daily; Mucinex 1200 mg p.o. daily; lisinopril 10 mg p.o. at bedtime; magnesium oxide 400 mg p.o. b.i.d.; Reglan 5 mg p.o. b.i.d.; Singulair 10 mg p.o. with lunch; MS Contin 30 mg p.o. q.8 hours; Nexium 40 mg p.o. b.i.d.; Mirapex 1 mg p.o. at bedtime; Demadex 10 mg p.o. daily; Colace 100 mg p.o. b.i.d.; Flonase nasal spray, two sprays in each nostril p.r.n. for allergies; Aldactone 50 mg p.o. daily; Apresoline 50 mg p.o. q.8 hours; albuterol nebulizer q.4 hours while awake; Atrovent nebulizer q.4 hours while awake; potassium chloride 10 mEq p.o. b.i.d.; Endocet 10/325 mg tablet one tab p.o. q.6 hours p.r.n. for pain. PROCEDURES: Include esophagogastroduodenoscopy performed by Dr. Eren Christianson, with esophageal dilatation. Bronchoscopy was performed by Dr. Felix Bae on 11/07/2016. Findings included normal visualization of the trachea, tracheobronchial tree, and bronchial mucosa. There were no endobronchial lesions noted. She did have some thick yellow secretions. Bronchoalveolar lavage was performed of the right middle lobe and sent for cell count, cytology, bacterial culture, viral smears and culture, and fungal and AFB analysis. Chest x-ray postprocedure did not demonstrate a pneumothorax. For full H and P, please refer to Dr. Ishaan Trevino's dictation of . Please also see Dr. Carlton Donald's consultation dictation on 10/20/2016, Dr. Rhett Dc's interim discharge summary on 10/30/2016, Dr. Lencho Esquivel's consultation report on 11/04/2016, Dr. Radha Morton's interim discharge summary on 11/05/2016. HOSPITAL COURSE/PROBLEM LIST: I assumed care of this patient on 11/07/[address] Tyler Vides. The patient is much improved since admission. Problem list includes: Discharge Summary [address] [address] NAME: CHAPIN GUTIERRES : 52 STATUS : DIS IN PAT#: [id number] AGE: 66 ADM/REG DATE : 10/20/16 MR#: [id number] REPORT SERV DATE: 11/09/16 DICTATED BY: DATE: REPORT STATUS : Draft TRANSCRIBED BY: MODL DATE: 11/08/16 1. Hypoxic respiratory failure which is resolved. The patient had a bronchoscopy yesterday on 11/07/[address] Bae, results are mentioned above. She is currently on room air on O2 saturation of 99%, respiratory rate 16. She does have rhonchi throughout her lung varela. Pulmonary is still following. I spoke with Mr. Chet Corbett PA-C today concerning discharge planning, is okay with Pulmonology for the patient to go home. She will follow up with Dr. Esquivel in two to four weeks in his office, and PFTs and chest x-ray will need to be performed prior to her appointment. 2. Chronic obstructive pulmonary disease exacerbation. The patient is on albuterol and Atrovent at home. I will add Advair to her regimen. Again, she will follow up with Dr. Esquivel in two to four weeks as an outpatient. 3. Esophageal stricture. This has resolved after her EGD with dilatation. She will follow up with GI p.r.n. 4. Neutropenic fever. This was due to methimazole for the patient's hyperthyroidism. Her white blood cell count today is 12.8. She has been on p.o. prednisone for her COPD exacerbation. Initially, the patient's white blood cell count was around 2 but quickly increased after discontinuing the methimazole. She will not need to follow up with Hematology for this. 5. Aspergillus in her sputum. Again, she will follow up with Dr. Esquivel as an outpatient. 6. Hyperthyroidism. The patient can no longer take methimazole due to her neutropenia. She has taken propylthiouracil in the past. Discussed this with Dr. Tyler Vides. I will prescribe her propylthiouracil 100 mg p.o. t.i.d. The patient will need to follow up with an pharmacy informaticist which she reports she does not have at this time so we will make her an appointment with her primary care physician in one to two weeks who is in the process of referring the patient to an pharmacy informaticist for further management, this is Dr. Emma Gonzalez. 7. Paroxysmal atrial fibrillation. The patient is taking diltiazem which is controlling her heart rate, and she is on Eliquis which I will continue upon discharge. 8. Anemia of chronic disease. Her H and H are stable, the last being 9.1 and 28.6. She can follow up with her primary care provider for further monitoring of this. 9. Silent aspiration. The patient was being treated by Speech Therapy prior to admission. We will continue this upon discharge. Again, she will also follow up with Dr. Esquivel in two to four weeks. BRITTANY/MODL Christian Abdi NP / [id number] CC: MD Emma Leger
--- NOTE | ~2016-10-20 | DS ---
Discharge Summary [place] [id number] [place]. [address] NAME: CHAPIN GUTIERRES : 52 STATUS : DIS IN PAT#: [id number] AGE: 66 ADM/REG DATE : 10/20/16 MR#: [id number] REPORT SERV DATE: 11/09/16 DICTATED BY: DATE: REPORT STATUS : Draft TRANSCRIBED BY: MODL DATE: 11/08/16 ADMISSION DATE: 10/20/2016 DISCHARGE DATE: 11/08/2016 ADDENDUM: The discharge took greater than 30 minutes due to medication reconciliation, coordination with followup care. BRITTANY/ROMINA Christian Abdi NP / [id number] CC: MD Emma Leger
--- NOTE | ~2016-10-20 | IDS ---
Interim Discharge Summary [facility] [address] [place]. [address] NAME: CHAPIN GUTIERRES : 52 STATUS : ADM [facility]#: [id number] AGE: 66 ADM/REG DATE : 10/20/16 MR#: [id number] REPORT SERV DATE: 10/30/16 DICTATED BY: DOMENICO JOSHI II DATE: 10/30/16 REPORT STATUS : Draft TRANSCRIBED BY: MODSimran DATE: 10/30/16 ADMISSION DATE: 10/20/2016 DISCHARGE DATE: DATE OF INTERIM: 10/30/2016. INTERIM DIAGNOSES: 1. Acute on chronic hypoxic respiratory failure. 2. Acute exacerbation of chronic obstructive pulmonary disease. 3. Neutropenic fever, now resolved. 4. Acute on chronic constipation. 5. Paroxysmal atrial fibrillation, on Eliquis. 6. Neutropenia, secondary to methimazole, now resolved, status post G-CSF. 7. History of hyperthyroidism, previously on methimazole. 8. Anemia. 9. History of chronic nausea and Salomon syndrome. CONSULTS: Dr. Lopez of [facility]. BRIEF HISTORY OF PRESENT ILLNESS: The patient is a 66-year-old female with the above history who presented to [facility] due to nausea, vomiting, and abdominal pain. For detailed history and physical examination, please see Dr. Trevino's note from 10/20/2016. HOSPITAL COURSE: On admission, the patient was neutropenic and had a fever. She was initially on cefepime; however, the patient remained afebrile. Cultures were negative. No significant source was found. She did have blepharitis of her right upper eye lid and has a gold implant in it which she says gets infected frequently. She was placed on Augmentin for that. After stopping methimazole and being given G-CSF by Dr. Lopez, her white cell count has since come up and even somewhat overshot, now about 20. Part of the leukocytosis is likely financial foundations representative of response to Solu-Medrol. The patient's main reason for still being here is she developed acute exacerbation of COPD and worsening hypoxic respiratory failure. She has diffuse wheezes and rhonchi with sputum production. Chest x-ray shows merely some subtle atelectatic change and sputum culture is pending though Gram stain only showing the yeast and less than 25 white blood cells. Given her worsening lung function, she was actually changed to Levaquin. Currently she is down to 3.5 L from 5 L. She feels subjectively her breathing has improved though her lungs still sound extremely coarse with diffuse wheezes. She is being optimized with nebulizers, Solu-Medrol, Levaquin, Pulmicort, and Brovana. She is also on Mucinex and Singulair. Hopefully, patient's lung function will improve because otherwise she is stable for discharge once her breathing improves. Her blepharitis has also significantly improved. Anticipated discharge in the next two days. Of note, Dr. Ishaan Trevino will take over the patient's care starting tomorrow. BUFFY/ROMINA Interim Discharge Summary [address] [address] NAME: CHAPIN GUTIERRES : 52 STATUS : ADM IN [facility]#: [id number] AGE: 66 ADM/REG DATE : 10/20/16 MR#: [id number] REPORT SERV DATE: 10/30/16 DICTATED BY: DOMENICO JOSHI II DATE: 10/30/16 REPORT STATUS : Draft TRANSCRIBED BY: ROMINA DATE: 10/30/16 Domenico Joshi II, MD / [id number]
--- NOTE | ~2016-10-20 | EGD ---
EGD REPORT [facility] [address] [address] NAME: MATY COBURN : 52 STATUS : ADM IN PAT#: [id number] AGE: 66 ADM/REG DATE : 10/20/16 MR#: [id number] REPORT SERV DATE: 11/03/16 DICTATED BY: SHENA CHRISTIANSEN DATE: 11/03/16 REPORT STATUS : Draft [facility]ED [facility]: [facility] DATE: 11/03/16 Endoscopy Center Patient Name: Maty Coburn Date of : 1950 Attending MD: SHENA CHRISTIANSEN MD Procedure Date No Time: 11/03/2016 Procedure: Upper GI endoscopy Indications: Stenosis of the esophagus, For therapy of esophageal stenosis Medicines: Sedation Required Anesthesia Staff Assistance Complications: No immediate complications. Estimated blood loss: Minimal. Procedure: Pre-Anesthesia Assessment: - ASA Grade Assessment: IV - A patient with severe systemic disease that is a constant threat to life. After obtaining informed consent, the endoscope was passed under direct vision. Throughout the procedure, the patient's blood pressure, pulse, and oxygen saturations were monitored continuously. The GIF [id number] was introduced through the mouth, and advanced to the third part of duodenum. The upper GI endoscopy was accomplished without difficulty. The patient tolerated the procedure well. Findings: A benign-appearing, intrinsic mild stenosis was found at the gastroesophageal junction and was traversed. Biopsies were taken with a cold forceps for histology. A guidewire was placed and the scope was withdrawn. Dilation was performed with a Savary dilator with mild resistance at 51 Fr and mild resistance at 54 Fr. Patchy mildly erythematous mucosa without bleeding was found in the gastric antrum. The examined duodenum was normal. Impression: - Benign-appearing esophageal stricture. Biopsied. Dilated. - Erythematous mucosa in the antrum. - Normal examined duodenum. Recommendation: - [facility] to [facility]. - Soft diet today. - Await pathology results. - Continue present medications. Procedure Code(s): --- Professional --- EGD REPORT [facility] [address] [place]. [address] NAME: MATY COBURN : 52 STATUS : ADM IN [facility]#: [id number] AGE: 66 ADM/REG DATE : 10/20/16 MR#: [id number] REPORT SERV DATE: 11/03/16 DICTATED BY: SHENA CHRISTIANSEN. DATE: 11/03/16 REPORT STATUS : Draft TRANSCRIBED BY: [employer] DATE: 11/03/16 625[address], Esophagogastroduodenoscopy, flexible, transoral; with insertion of guide wire followed by passage of dilator(s) through esophagus over guide wire 74817, Esophagogastroduodenoscopy, flexible, transoral; with biopsy, single or multiple Diagnosis Code(s): --- Professional --- K22.2, Esophageal obstruction K31.9, Disease of stomach and duodenum, unspecified CPT copyright 2013 [employer]. All rights reserved. The codes documented in this report are preliminary and upon outpatient coder review may be revised to meet current compliance requirements. SHENA CHRISTIANSEN MD 11/03/2016 10:31 AM This report has been signed electronically. Number of Addenda: 0 Note Initiated On: 11/03/2016 10:10 AM Scope Withdrawal Time 0 hours 0 minutes 0 seconds [address] [place] [address]
--- NOTE | ~2016-10-20 | EGD ---
EGD REPORT [facility] [address] [address] NAME: MATY COBURN LANDERS : 52 STATUS : ADM IN [facility]#: [id number] AGE: 66 ADM/REG DATE : 10/20/16 MR#: [id number] REPORT SERV DATE: 11/07/16 DICTATED BY: CONSTANTIN ATWOOD DATE: 11/07/16 REPORT STATUS : Draft TRANSCRIBED BY: [facility] DATE: 11/07/16 Pulmonology Patient Name: Maty Coburn Procedure Date: 11/07/2016 11:03 AM Date of : 1950 Attending MD: ELIZABET ATWOOD MD Procedure Date No Time: 11/07/2016 Procedure: Bronchoscopy Indications: History of aspergillus Providers: ELIZABET ATWOOD MD Referring MD: GUERLINE Wilson Medicines: Lidocaine 2% 20 mL Complications: No immediate complications Procedure: Pre-Anesthesia Assessment: - A History and Physical has been performed. Patient meds and allergies have been reviewed. The risks and benefits of the procedure and the sedation options and risks were discussed with the patient. All questions were answered and informed consent was obtained. Patient identification and proposed procedure were verified prior to the procedure by the physician and the nurse in the pre-procedure area in the procedure room. Mental Status Examination: alert and oriented. Airway Examination: normal oropharyngeal airway. Respiratory Examination: clear to auscultation. CV Examination: normal and RRR, no murmurs, no S3 or S4. ASA Grade Assessment: III - A patient with severe systemic disease. After reviewing the risks and benefits, the patient was deemed in satisfactory condition to undergo the procedure. The anesthesia plan was to use general anesthesia. Immediately prior to administration of medications, the patient was re-assessed for adequacy to receive sedatives. The heart rate, respiratory rate, oxygen saturations, blood pressure, adequacy of pulmonary ventilation, and response to care were monitored throughout the procedure. The physical status of the patient was re-assessed after the procedure. After obtaining informed consent, the BF [id number] was introduced through the mouth, via the endotracheal tube (the patient was intubated for the procedure) and advanced to the tracheobronchial tree. The procedure was accomplished without difficulty. The patient tolerated the procedure well. Findings: The endotracheal tube is in good position. The visualized portion of the EGD REPORT [address] [address] NAME: MATY COBURN : 52 STATUS : ADM IN [facility]#: [id number] AGE: 66 ADM/REG DATE : 10/20/16 MR#: [id number] REPORT SERV DATE: 11/07/16 DICTATED BY: CONSTANTIN ATWOOD DATE: 11/07/16 REPORT STATUS : Draft TRANSCRIBED BY: [employer] DATE: 11/07/16 trachea is of normal caliber. The mell is sharp. The tracheobronchial tree was examined to at least the first subsegmental level. Bronchial mucosa and anatomy are normal; there are no endobronchial lesions. Thick yellow secretions were toileted. Bronchoalveolar lavage was performed in the right middle lobe of the lung and sent for cell count, cytology, bacterial culture, viral smears \T\ culture, and fungal and AFB analysis. 120 mL of fluid were instilled. 30 mL were returned. The return was cellular. Impression: - The examination was normal. - Bronchoalveolar lavage was performed. Recommendation: - Await test results. - Chest X-ray post-procedure. Attending Participation: I personally performed the entire procedure. ELIZABET ATWOOD MD 11/07/2016 12:10 PM This report has been signed electronically. Number of Addenda: 0 Note Initiated On: 11/07/2016 11:03 AM [address] [place], [place] [address]
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
--- NOTE | ~2016-10-20 | IDS ---
Interim Discharge Summary [facility] [address] [place]. [address] NAME: CHAPIN GUTIERRES : 52 STATUS : ADM IN PAT#: [id number] AGE: 66 ADM/REG DATE : 10/20/16 MR#: [id number] REPORT SERV DATE: 11/06/16 DICTATED BY: JOSEFA GILMORE DATE: 11/06/16 REPORT STATUS : Draft TRANSCRIBED BY: MODSimran DATE: 11/06/16 ADMISSION DATE: 10/20/2016 DISCHARGE DATE: 1. Acute on chronic hypoxic respiratory failure. 2. Chronic obstructive pulmonary disease exacerbation. 3. Gastroesophageal stricture with regurgitation status post dilatation. 4. Neutropenic fever, secondary to methimazole. 5. Positive Aspergillus sputum. 6. History of chronic hyperthyroidism. 7. Paroxysmal atrial fibrillation. 8. Anemia of chronic disease. CONSULTANTS: Pulmonary, Dr. Esquivel and GI with Dr. Eren Christianson. HOSPITALIST: Dr. Ishaan Trevino; Dr. Dc; and Dr. Gilmore. PROCEDURES: During this interim week, on 11/03/2016, upper GI/EGD with a benign-appearing esophageal stricture which was biopsied and dilated. Erythematous mucosa in the antrum. Normal examined duodenum. By Dr. Eren Christianson. HOSPITAL COURSE: Please see H and P dictated by Dr. Ishaan Trevino and interim summary from Dr. Rhett Dc for further details. I attended the care for this patient initiating on 10/31/2016, therefore this interim summary continues. The patient continued to have COPD exacerbation. Initially was placed on a steroid by Dr. Dc for worsening shortness of breath, continued to have bilateral expiratory wheezing with shortness of breath and productive cough. The patient's sputum grew out positive for Aspergillus, therefore Infectious Disease specialist, Dr. Wei Cesar was consulted. He does not suspect invasive Aspergillosis, however, hard to determine without bronchoscopy. Also discontinued all of the patient's antibiotics. The patient had a complaint of regurgitation and has a history of esophageal stricture requiring dilatation before in the past, therefore, GI was consulted after the patient had an upper GI which found signs of gastroesophageal stricture with non- passing of the barium tablet. The patient required EGD with dilatation by Dr. Eren Christianson and now tolerating a soft diet a lot better, suspected that the patient's ongoing prolonged respiratory issues may have been exacerbated from recurrent aspirating to the lung which now has resolved with dilatation. Also, Hematology has signed off. They were following the patient for her neutropenic fever secondary to methimazole. The patient is to continue to be off methimazole; however, Hematology was called and spoken to Dr. Lopez who approved for the patient to be placed on propylthiouracil if needed in the future. Also Pulmonary was consulted to assist for the patient's care for her ongoing COPD exacerbation. They plan at this time for a possible bronchoscopy for her ongoing respiratory issues with a positive Aspergillus in the sputum. The patient was seen by Dr. Esquivel who plans to consult Dr. Bae for bronchoscopy. The patient's pulmonary status is improved from admission but still with some bilateral wheezing. The patient's Eliquis has been placed on hold for possible upcoming bronchoscopy. Suspect bronchoscopy with BAL considering the patient has been on Eliquis, however, if FNA is being planned, then the patient will have to be off Eliquis for Interim Discharge Summary [address] [address] NAME: CHAPIN GUTIERRES : 52 STATUS : ADM IN [facility]#: [id number] AGE: 66 ADM/REG DATE : 10/20/16 MR#: [id number] REPORT SERV DATE: 11/06/16 DICTATED BY: JOSEFA GILMORE DATE: 11/06/16 REPORT STATUS : Draft TRANSCRIBED BY: MODSimran DATE: 11/06/16 at least 4-to-5 days. The patient is currently hemodynamically and clinically stable at this time. The patient will be followed by my colleague starting 11/07/2016, who will attend to her care. Also please note, at discharge, it should be decided if the patient should continue with her propylthiouracil for history of hyperthyroidism. The patient states she has taken PT before in the past and tolerated well. [facility]/MODL Josefa Gilmore M.D. / [id number] CC: JosefaAmber Caro
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
--- NOTE | ~2016-10-20 | CN ---
Consultation Report [facility] [address] [place]. [address] NAME: CHAPIN GUTIERRES : 52 STATUS : ADM IN PAT#: [id number] AGE: 66 ADM/REG DATE : 10/20/16 MR#: [id number] REPORT SERV DATE: 10/21/16 DICTATED BY: FAUSTO KU DATE: 10/20/16 REPORT STATUS : Draft TRANSCRIBED BY: MODL DATE: 10/20/16 HEMATOLOGY/ONCOLOGY CONSULTATION DATE OF CONSULTATION: REASON FOR CONSULTATION: Neutropenia with fever. HISTORY OF PRESENT ILLNESS: This is a very nice 66-year-old female with a complex medical history, which is listed below. She was recently admitted and discharged from [facility], a protracted hospitalization. During her hospital course, medications used to treat her hyperthyroidism were changed from PTU to methimazole. She received PTU from 08/18/2016 to 08/30/2016, then methimazole from 08/30/2016, until present. She was discharged home. She relates a 7 to 8-day history of progressive abdominal pain, nausea, and vomiting. She states that she had fever with chills over the past 48 hours. She presented to the emergency room, and was noted to have a temperature of 101.9 degrees Fahrenheit. She was tachycardic. Imaging, including a CT scan of the abdomen and pelvis, did not show obstruction. There were changes consistent with gastroenteritis. Chest x-ray was unremarkable. Electrolytes were consistent with volume depletion. CBC showed a white blood cell count of 0.5, with 0 neutrophils, hemoglobin 9.3, and platelet count 258. She is admitted for further evaluation and treatment. Most recent white blood cell count was 5.7 on 09/06/2016. There is no history of underlying MDS or bone marrow disease. PAST MEDICAL HISTORY: 1. COPD. 2. Asthma. 3. History of aspiration. 4. History of prior Perkins syndrome. 5. History of partial small bowel obstruction. 6. History of chronic nausea and dysphagia. 7. GERD. 8. Peptic ulcer disease. 9. Hypertension. 10.Atrial fibrillation on Eliquis anticoagulation. 11.History of hyperthyroidism as described above. 12.Chronic anemia ascribed to iron deficiency. 13.Thrombocytopenia, which has resolved. 14.History of acute kidney injury, now resolved. 15.History of chronic pain. 16.Obstructive sleep apnea. 17.Restless legs syndrome. Consultation Report [place] [address] [place]. [address] NAME: CHAPIN GUTIERRES : 52 STATUS : ADM IN PAT#: [id number] AGE: 66 ADM/REG DATE : 10/20/16 MR#: [id number] REPORT SERV DATE: 10/21/16 DICTATED BY: FAUSTO KU DATE: 10/20/16 REPORT STATUS : Draft TRANSCRIBED BY: ROMINA DATE: 10/20/16 18.History of urinary retention. 19.Gouty arthropathy. 20.Coronary artery disease status post MD in 2010. 21.CHF, diastolic dysfunction. SURGERIES: These are multiple, but include hysterectomy. ALLERGIES: THESE ARE MULTIPLE AND INCLUDE DOXYCYCLINE AND TETRACYCLINE, PENICILLIN, FLEXERIL, ZANAFLEX, SOMA, ATROVENT, BETADINE, FLAGYL, REQUIP, KEFLEX, STATINS, SULFA DRUGS, BYSTOLIC AND OTHER BETA-BLOCKERS, LYRICA, AND OFLOXACIN. MEDICATIONS: Current medications include Singulair, Prinivil, guaifenesin, Cardizem CD, aspirin, Demadex, Protonix, MS Contin, hydralazine, Reglan, magnesium, Caltrate, Astelin spray, Mirapex, artificial tears, Eliquis, cefepime, Percocet p.r.n., Phenergan p.r.n., Zofran p.r.n., electrolytes sliding scale. FAMILY HISTORY: Notable for CHF in the patient's mother and CHF and prostate cancer in the patient's father. SOCIAL HISTORY: The patient is a former smoker. She does not drink alcohol. She is a . She lives in [place], [place]. REVIEW OF SYSTEMS: Eleven system review of systems was performed and is notable for those symptoms described in the HPI, otherwise negative. PHYSICAL EXAMINATION: VITAL SIGNS: Temperature 101.9, now 99; pulse 105; respirations 16; blood pressure 115/60. GENERAL: Chronically ill-appearing lady, currently nauseated and uncomfortable. HEAD: Atraumatic, but evidence of prior surgery in the right orbit. EYES: Extraocular movements are intact. See above regarding prior surgery. EARS, NOSE, THROAT: No thrush or mucositis. LYMPH NODE SURVEY: No palpable lymphadenopathy in the cervical, supraclavicular, or axillary regions. CARDIAC: Regular rate and rhythm without murmurs. PULMONARY: Distant breath sounds bilaterally, but no wheezes are auscultated. ABDOMEN: Mildly tender throughout, with bowel sounds. No rebound tenderness or other peritoneal signs. EXTREMITIES: No lower extremity edema bilaterally. Extremities are warm and well perfused. SKIN: No petechiae are noted. No suspicious rashes. NEUROLOGIC: Alert and oriented x3, moving all extremities. PSYCHIATRIC: Anxious, but intact judgment and insight. LABORATORY STUDIES: Please see the history of present illness regarding the patient's CBC, and other imaging studies. Consultation Report [address] [place]. [address] NAME: CHAPIN GUTIERRES : 52 STATUS : ADM IN [facility]#: [id number] AGE: 66 ADM/REG DATE : 10/20/16 MR#: [id number] REPORT SERV DATE: 10/21/16 DICTATED BY: FAUSTO KU. DATE: 10/20/16 REPORT STATUS : Draft TRANSCRIBED BY: ROMINA DATE: 10/20/16 ASSESSMENT AND PLAN: This is a very nice 66-year-old female with a very complicated past medical history, and multiple recent hospitalizations. She presents with neutropenia and fever. She also has a chronic anemia. Regarding the patient's new neutropenia, my feeling is this is a drug-associated phenomenon. I believe it is likely related to the patient's methimazole, thyroid medication. I agree with stoppage of the medication if you have done. In addition, given her multiple medical comorbidities, and the risk of progression to sepsis, I would like to begin G-CSF to stimulate the marrow. In addition, for completeness, I will check a B12, folic acid, and LDH. I will follow with you. Thank you for the kind referral. [facility]IRI/ROMINA Fausto Ku M.D. / [id number] CC: MD LATOYA Senior KATRINA V.
[2016-10-20 13:56] LABS: EOSINOPHILS 0 %; LYMPHOCYTES ABSOLUTE 0.32 10/3/uL (0.67-4.30); MEAN CORPUSCULAR HEMOGLOB 26.3 pg (26.0-34.0); MEAN PLATELET VOLUME 9.9 fL (9.2-13.0); MONOCYTES ABSOLUTE 0.17 10/3/uL (0.21-1.20); NEUTROPHILS 0 %; PLATELET COUNT 258 10/3/uL (150-400)
[2016-10-20 13:58] LABS: HEMATOCRIT 27.9 % (36.0-48.0); HEMOGLOBIN 9.3 g/dL (12.0-16.0); MEAN CORPUS HGB CONC 33.3 g/dL (32.0-36.0); MEAN CORPUSCULAR VOLUME 78.8 fL (80-100); RED CELL COUNT 3.54 10/6/uL (4.0-5.6); WHITE BLOOD CELLS 0.5 10/3/uL (4.5-10.5)
[2016-10-20 13:59] LABS: BASOPHILS ABSOLUTE 0.01 10/3/uL (0.0-0.16); MANUAL DIFF NO %
[2016-10-20 14:01] LABS: ASCORBIC ACID (UR NOT ORDER) NEG (NEG); BILIRUBIN, URINE NEGATIVE (NEG); ER URINALYSIS TAT 0 Hrs 09 Mins; KETONE, URINE 20 MG/DL (NEG); LEUKOCYTE ESTERASE(NOT OR NEG (NEG); NITRITE (URINE) NEG (NEG); WBC (NOT ORDERED) (RFLEX) 1 (0-5)
[2016-10-20 14:13] LABS: BUN (BLOOD UREA NITROGEN) 28 MG/DL (6-23); CALCIUM, SERUM 9.6 MG/DL (8.5-10.4); CHLORIDE, SERUM 98 MMOL/L (96-112); CREATININE 1.09 MG/DL (0.55-1.02); GFR AFRICAN AMERICAN 62 ML/MIN (>=60); GFR NON AFRICAN AMERICAN 53 ML/MIN (>=60); GLUCOSE, SERUM 103 MG/DL (60-99); SGOT(AST) 5 U/L (5-40); SGPT(ALT) 13 U/L (5-65); SODIUM, SERUM 131 MMOL/L (135-148); TOTAL BILIRUBIN 0.6 MG/DL (0-1.2)
[2016-10-20 14:14] LABS: A/G RATIO 0.8 (0.7-1.9); ALBUMIN 3.3 G/DL (3.5-5.0); ALKALINE PHOSPHATASE 126 U/L (45-117); CO2 (CARBON DIOXIDE) 22 MMOL/L (24-34); POTASSIUM, SERUM 5.2 MMOL/L (3.5-5.3); TOTAL PROTEIN 7.3 G/DL (6.0-8.5)
[2016-10-20 14:17] LABS: EOSINOPHILS 4 %; EOSINOPHILS ABSOLUTE (CALC) 0.02 10/3/uL (0.0-0.53); ER DIFF TAT 0 Hrs 25 Mins; LYMPHOCYTES 64 %; LYMPHOCYTES ABSOLUTE (CALC) 0.32 10/3/uL (0.67-4.30); MONOCYTES 32 %; MONOCYTES ABSOLUTE (CALC) 0.16 10/3/uL (0.21-1.20); PLATELET ESTIMATE ADQ (ADEQUATE); TOTAL NUCLEATED CELLS 25
[2016-10-20 14:18] LABS: ELLIPTOCYTES 1+ (3-10/OIF) (0-2/OIF); HYPOCHROMIA 1+ (3-10/OIF) (0-2/OIF); MICROCYTES 1+ (5-10/OIF) (0-5/OIF)
[~2016-10-20 15:39] MED LIST changes: +ALBUTEROL5 INH; +APRES25 PO; +CARDIZEM LA300 MG PO; +HARD NAILS PO; +KLOR-CON 1010 MEQ PO; +MSCONTIN PO; +PERCOCET 10/3251 TAB PO; +PRIN10 PO; +PROPYLTHIOURACI50 MG PO; +REFRESH OPH SO0.3 ML OPH; +SPIRO50 PO
[2016-10-20] MEDS ORDERED: DSS PO (16:51)
[2016-10-20] MEDS ORDERED: ELIQUIS 2.5 MG2.5 MG PO (16:51)
[2016-10-20] MEDS ORDERED: ASTELIN NAS (16:52)
[2016-10-20] MEDS ORDERED: FLONASE NAS (16:52)
[2016-10-20] MEDS ORDERED: TEARS PLUS OPH (16:58)
[2016-10-20] MEDS ORDERED: CARDIZEM LA300 MG PO (16:58)
[2016-10-20] MEDS ORDERED: MUCINEX1200 MG PO (16:58)
[2016-10-20] MEDS ORDERED: TAPAZOLE10 MG PO (16:59)
[2016-10-20] MEDS ORDERED: PRIN10 PO (16:59)
[2016-10-20] MEDS ORDERED: MAGOX4 PO (16:59)
[2016-10-20] MEDS ORDERED: NEXIUM40 PO (17:00)
[2016-10-20] MEDS ORDERED: REG5 PO (17:00)
[2016-10-20] MEDS ORDERED: SINGULAIR1 PO (17:00)
[2016-10-20] MEDS ORDERED: APRES50 PO (17:01)
[2016-10-20] MEDS ORDERED: DEMA10T PO (17:01)
[2016-10-20] MEDS ORDERED: MIRAPEX1 MG PO (17:01)
[2016-10-20] MEDS ORDERED: SPIRO50 PO (17:01)
[2016-10-20] MEDS ORDERED: ALBUTEROL5 INH (17:02)
[2016-10-20] MEDS ORDERED: ATROVENTUD INH (17:02)
[2016-10-20] MEDS ORDERED: TEARS PURE OPH (17:03)
[2016-10-20] MEDS ORDERED: KLOR-CON 1010 MEQ PO (17:04)
[2016-10-20] MEDS ORDERED: MSCONTIN PO (17:04)
[2016-10-20] MEDS ORDERED: ENDOCET1 TA3 PO (17:05)
[2016-10-20] MEDS ORDERED: ASAB PO (17:07)
[2016-10-20] MEDS ORDERED: CALTRA600D PO (17:08)
[2016-10-20] MEDS ORDERED: BIOTIN5 MG PO (17:09)
[2016-10-20 21:12] LABS: FREE T4 1.26 NG/DL (0.76-1.46)
[2016-10-20 21:13] LABS: FOLATE 17.1 NG/ML (>5.2)
[2016-10-21 06:12] LABS: HEMATOCRIT 25.4 % (36.0-48.0); HEMOGLOBIN 8.5 g/dL (12.0-16.0); MEAN CORPUS HGB CONC 33.5 g/dL (32.0-36.0); MEAN CORPUSCULAR HEMOGLOB 26.6 pg (26.0-34.0); MEAN CORPUSCULAR VOLUME 79.4 fL (80-100); MEAN PLATELET VOLUME 10.2 fL (9.2-13.0); PLATELET COUNT 216 10/3/uL (150-400); RBC DISTRIBUTION WIDTH 15.1 % (12.0-16.0)
[2016-10-21 06:14] LABS: MANUAL DIFF YES %; WHITE BLOOD CELLS 0.7 10/3/uL (4.5-10.5)
[2016-10-21 06:23] LABS: CALCIUM, SERUM 9.3 MG/DL (8.5-10.4); CHLORIDE, SERUM 100 MMOL/L (96-112); CO2 (CARBON DIOXIDE) 21 MMOL/L (24-34); CREATININE 0.94 MG/DL (0.55-1.02); GFR AFRICAN AMERICAN 74 ML/MIN (>=60); GFR NON AFRICAN AMERICAN 64 ML/MIN (>=60); GLUCOSE, SERUM 84 MG/DL (60-99); POTASSIUM, SERUM 4.9 MMOL/L (3.5-5.3); SODIUM, SERUM 131 MMOL/L (135-148)
[2016-10-21 06:24] LABS: BUN (BLOOD UREA NITROGEN) 19 MG/DL (6-23)
[2016-10-21 07:31] LABS: LYMPHOCYTES 73 %; LYMPHOCYTES ABSOLUTE (CALC) 0.51 10/3/uL (0.67-4.30); MONOCYTES 27 %; MONOCYTES ABSOLUTE (CALC) 0.19 10/3/uL (0.21-1.20); PLATELET ESTIMATE ADQ (ADEQUATE); RBC MORPHOLOGY NORM (NORMAL); TOTAL NUCLEATED CELLS 100
[2016-10-21 09:58] LABS: PATH REVIEW YES
[2016-10-21 10:11] LABS: PATH REVIEW SEE PATHOLOGY REPORT
[2016-10-22 06:41] LABS: HEMATOCRIT 24.3 % (36.0-48.0); MANUAL DIFF YES %; MEAN CORPUS HGB CONC 32.9 g/dL (32.0-36.0); MEAN CORPUSCULAR HEMOGLOB 26.4 pg (26.0-34.0); MEAN CORPUSCULAR VOLUME 80.2 fL (80-100); MEAN PLATELET VOLUME 9.9 fL (9.2-13.0); PLATELET COUNT 225 10/3/uL (150-400); RBC DISTRIBUTION WIDTH 15.2 % (12.0-16.0); RED CELL COUNT 3.03 10/6/uL (4.0-5.6); WHITE BLOOD CELLS 0.7 10/3/uL (4.5-10.5)
[2016-10-22 07:06] LABS: BUN (BLOOD UREA NITROGEN) 18 MG/DL (6-23); CALCIUM, SERUM 8.7 MG/DL (8.5-10.4); CHLORIDE, SERUM 101 MMOL/L (96-112); CO2 (CARBON DIOXIDE) 21 MMOL/L (24-34); CREATININE 1.11 MG/DL (0.55-1.02); GFR AFRICAN AMERICAN 60 ML/MIN (>=60); GFR NON AFRICAN AMERICAN 52 ML/MIN (>=60); GLUCOSE, SERUM 94 MG/DL (60-99); POTASSIUM, SERUM 4.4 MMOL/L (3.5-5.3); SODIUM, SERUM 134 MMOL/L (135-148); ULTRASENSITIVE TSH 0.378 MCIU/ML (0.358-3.740)
[2016-10-22 07:36] LABS: LYMPHOCYTES 75 %; LYMPHOCYTES ABSOLUTE (CALC) 0.53 10/3/uL (0.67-4.30); MONOCYTES 25 %; MONOCYTES ABSOLUTE (CALC) 0.18 10/3/uL (0.21-1.20); PLATELET ESTIMATE ADQ (ADEQUATE); RBC MORPHOLOGY NORM (NORMAL); TOTAL NUCLEATED CELLS 20
[2016-10-23 07:12] LABS: HEMATOCRIT 26.1 % (36.0-48.0); HEMOGLOBIN 8.4 g/dL (12.0-16.0); MEAN CORPUS HGB CONC 32.2 g/dL (32.0-36.0); MEAN CORPUSCULAR VOLUME 80.8 fL (80-100); MEAN PLATELET VOLUME 9.9 fL (9.2-13.0); PLATELET COUNT 243 10/3/uL (150-400); RBC DISTRIBUTION WIDTH 15.1 % (12.0-16.0); RED CELL COUNT 3.23 10/6/uL (4.0-5.6)
[2016-10-23 07:14] LABS: MANUAL DIFF YES %
[2016-10-23 07:19] LABS: CHLORIDE, SERUM 102 MMOL/L (96-112); CO2 (CARBON DIOXIDE) 22 MMOL/L (24-34); CREATININE 0.91 MG/DL (0.55-1.02); GFR AFRICAN AMERICAN 77 ML/MIN (>=60); GFR NON AFRICAN AMERICAN 66 ML/MIN (>=60); GLUCOSE, SERUM 96 MG/DL (60-99); POTASSIUM, SERUM 4.4 MMOL/L (3.5-5.3); SODIUM, SERUM 134 MMOL/L (135-148)
[2016-10-23 07:20] LABS: BUN (BLOOD UREA NITROGEN) 13 MG/DL (6-23)
[2016-10-23 08:07] LABS: BAND NEUTROPHILS 5 %; LYMPHOCYTES 63 %; LYMPHOCYTES ABSOLUTE (CALC) 0.63 10/3/uL (0.67-4.30); MONOCYTES 14 %; MONOCYTES ABSOLUTE (CALC) 0.14 10/3/uL (0.21-1.20); NEUTROPHILS ABSOLUTE (CALC) 0.23 10/3/uL (2.02-8.40); PLATELET ESTIMATE ADQ (ADEQUATE); RBC MORPHOLOGY NORM (NORMAL); SEGMENTED NEUTROPHIL (0) 18 %; TOTAL NUCLEATED CELLS 57
[2016-10-24 06:01] LABS: HEMATOCRIT 26.7 % (36.0-48.0); HEMOGLOBIN 8.6 g/dL (12.0-16.0); MANUAL DIFF YES %; MEAN CORPUS HGB CONC 32.2 g/dL (32.0-36.0); MEAN CORPUSCULAR HEMOGLOB 26.1 pg (26.0-34.0); MEAN CORPUSCULAR VOLUME 81.2 fL (80-100); MEAN PLATELET VOLUME 10.1 fL (9.2-13.0); PLATELET COUNT 296 10/3/uL (150-400); RBC DISTRIBUTION WIDTH 15.2 % (12.0-16.0); RED CELL COUNT 3.29 10/6/uL (4.0-5.6); WHITE BLOOD CELLS 2.7 10/3/uL (4.5-10.5)
[2016-10-24 06:02] LABS: PHOSPHORUS, SERUM 2.3 MG/DL (2.5-4.5)
[2016-10-24 06:11] LABS: BAND NEUTROPHILS 10 %; BASOPHILS 1 %; BASOPHILS ABSOLUTE (CALC) 0.03 10/3/uL (0.0-0.16); LYMPHOCYTES 36 %; LYMPHOCYTES ABSOLUTE (CALC) 0.97 10/3/uL (0.67-4.30); METAMYELOCYTES 11 %; MONOCYTES 16 %; MONOCYTES ABSOLUTE (CALC) 0.43 10/3/uL (0.21-1.20); NEUTROPHILS ABSOLUTE (CALC) 0.97 10/3/uL (2.02-8.40); PLATELET ESTIMATE ADQ (ADEQUATE); RBC MORPHOLOGY NORM (NORMAL); SEGMENTED NEUTROPHIL (0) 26 %; TOTAL NUCLEATED CELLS 100
[2016-10-25 07:14] LABS: HEMATOCRIT 26.6 % (36.0-48.0); HEMOGLOBIN 8.7 g/dL (12.0-16.0); MEAN CORPUS HGB CONC 32.7 g/dL (32.0-36.0); MEAN CORPUSCULAR HEMOGLOB 26.4 pg (26.0-34.0); MEAN CORPUSCULAR VOLUME 80.9 fL (80-100); MEAN PLATELET VOLUME 10.2 fL (9.2-13.0); PLATELET COUNT 332 10/3/uL (150-400); RBC DISTRIBUTION WIDTH 15.2 % (12.0-16.0); RED CELL COUNT 3.29 10/6/uL (4.0-5.6)
[2016-10-25 07:20] LABS: WHITE BLOOD CELLS 11.7 10/3/uL (4.5-10.5)
[2016-10-25 07:21] LABS: MANUAL DIFF YES %
[2016-10-25 08:19] LABS: BAND NEUTROPHILS 10 %; HYPOCHROMIA 1+ (3-10/OIF) (0-2/OIF); LYMPHOCYTES 14 %; LYMPHOCYTES ABSOLUTE (CALC) 1.64 10/3/uL (0.67-4.30); MONOCYTES 6 %; NEUTROPHILS ABSOLUTE (CALC) 9.36 10/3/uL (2.02-8.40); PLATELET ESTIMATE ADQ (ADEQUATE); SEGMENTED NEUTROPHIL (0) 70 %; TOTAL NUCLEATED CELLS 100
[2016-10-26 07:14] LABS: HEMATOCRIT 25.9 % (36.0-48.0); HEMOGLOBIN 8.5 g/dL (12.0-16.0); MEAN CORPUS HGB CONC 32.8 g/dL (32.0-36.0); MEAN CORPUSCULAR HEMOGLOB 26.5 pg (26.0-34.0); MEAN CORPUSCULAR VOLUME 80.7 fL (80-100); PLATELET COUNT 364 10/3/uL (150-400); RBC DISTRIBUTION WIDTH 15.2 % (12.0-16.0); RED CELL COUNT 3.21 10/6/uL (4.0-5.6)
[2016-10-26 07:15] LABS: MANUAL DIFF YES %; WHITE BLOOD CELLS 22.3 10/3/uL (4.5-10.5)
[2016-10-26 07:42] LABS: BAND NEUTROPHILS 21 %; IMMATURE GRANS ABSOLUTE (CALC) 2.01 10/3/uL (0.0-0.11); LYMPHOCYTES 8 %; LYMPHOCYTES ABSOLUTE (CALC) 1.78 10/3/uL (0.67-4.30); METAMYELOCYTES 5 %; MONOCYTES 4 %; MONOCYTES ABSOLUTE (CALC) 0.89 10/3/uL (0.21-1.20); MYELOCYTES 4 %; NEUTROPHILS ABSOLUTE (CALC) 17.62 10/3/uL (2.02-8.40); PLATELET ESTIMATE ADQ (ADEQUATE); SEGMENTED NEUTROPHIL (0) 58 %; TOTAL NUCLEATED CELLS 100
[2016-10-26 07:43] LABS: BURR CELLS 1+ (3-10/OIF) (0-2/OIF); POIKILOCYTOSIS 1+ (5-10/OIF) (0-5/OIF); TEARDROP SHAPED RBCS OCC (0-2/OIF); TOXIC GRANULATION 2+; VACUOLATED NEUTROPHILES 1+
[2016-10-28 05:54] LABS: A/G RATIO 0.9 (0.7-1.9); ALKALINE PHOSPHATASE 115 U/L (45-117); BUN (BLOOD UREA NITROGEN) 16 MG/DL (6-23); CALCIUM, SERUM 8.8 MG/DL (8.5-10.4); CHLORIDE, SERUM 96 MMOL/L (96-112); GFR AFRICAN AMERICAN 78 ML/MIN (>=60); GFR NON AFRICAN AMERICAN 67 ML/MIN (>=60); GLOBULIN 3.2 G/DL (2.5-4.1); HEMATOCRIT 27.5 % (36.0-48.0); HEMOGLOBIN 8.9 g/dL (12.0-16.0); MANUAL DIFF YES %; MEAN CORPUS HGB CONC 32.4 g/dL (32.0-36.0); MEAN CORPUSCULAR HEMOGLOB 26.2 pg (26.0-34.0); MEAN CORPUSCULAR VOLUME 80.9 fL (80-100); MEAN PLATELET VOLUME 9.7 fL (9.2-13.0); NUCLEATED RED BLOOD CELLS 0.4 /100WBC (0-0); PLATELET COUNT 325 10/3/uL (150-400); POTASSIUM, SERUM 3.8 MMOL/L (3.5-5.3); RBC DISTRIBUTION WIDTH 15.1 % (12.0-16.0); SGOT(AST) 10 U/L (5-40); SGPT(ALT) 13 U/L (5-65); SODIUM, SERUM 135 MMOL/L (135-148); TOTAL BILIRUBIN 0.2 MG/DL (0-1.2); TOTAL PROTEIN 6.2 G/DL (6.0-8.5); WHITE BLOOD CELLS 22.4 10/3/uL (4.5-10.5)
[2016-10-28 05:59] LABS: CO2 (CARBON DIOXIDE) 32 MMOL/L (24-34); GLUCOSE, SERUM 164 MG/DL (60-99)
[2016-10-28 07:30] LABS: BAND NEUTROPHILS 26 %; IMMATURE GRANS ABSOLUTE (CALC) 3.36 10/3/uL (0.0-0.11); LYMPHOCYTES 7 %; LYMPHOCYTES ABSOLUTE (CALC) 1.57 10/3/uL (0.67-4.30); METAMYELOCYTES 10 %; MONOCYTES 6 %; MONOCYTES ABSOLUTE (CALC) 1.34 10/3/uL (0.21-1.20); MYELOCYTES 5 %; NEUTROPHILS ABSOLUTE (CALC) 16.13 10/3/uL (2.02-8.40); SEGMENTED NEUTROPHIL (0) 46 %; TOTAL NUCLEATED CELLS 100
[2016-10-28 07:32] LABS: PLATELET ESTIMATE ADQ (ADEQUATE)
[2016-10-28 07:33] LABS: HELMET CELLS OCC (0-2/OIF); POLYCHROMASIA 1+ (2-5/OIF) (0-1/OIF); TEARDROP SHAPED RBCS OCC (0-2/OIF); TOXIC GRANULATION 1+; VACUOLATED NEUTROPHILES OCC
[2016-10-29 05:43] LABS: HEMATOCRIT 27.3 % (36.0-48.0); HEMOGLOBIN 8.9 g/dL (12.0-16.0); MEAN CORPUS HGB CONC 32.6 g/dL (32.0-36.0); MEAN CORPUSCULAR HEMOGLOB 26.2 pg (26.0-34.0); MEAN CORPUSCULAR VOLUME 80.3 fL (80-100); MEAN PLATELET VOLUME 9.7 fL (9.2-13.0); PLATELET COUNT 307 10/3/uL (150-400); RBC DISTRIBUTION WIDTH 15.3 % (12.0-16.0); WHITE BLOOD CELLS 19.8 10/3/uL (4.5-10.5)
[2016-10-29 05:56] LABS: MANUAL DIFF YES %
[2016-10-29 06:40] LABS: BAND NEUTROPHILS 21 %; IMMATURE GRANS ABSOLUTE (CALC) 2.18 10/3/uL (0.0-0.11); LYMPHOCYTES 6 %; LYMPHOCYTES ABSOLUTE (CALC) 1.19 10/3/uL (0.67-4.30); METAMYELOCYTES 10 %; MONOCYTES 2 %; MYELOCYTES 6 %; NEUTROPHILS ABSOLUTE (CALC) 16.04 10/3/uL (2.02-8.40); PLATELET ESTIMATE ADQ (ADEQUATE); SEGMENTED NEUTROPHIL (0) 55 %; TOTAL NUCLEATED CELLS 100
[2016-10-29 06:41] LABS: RBC MORPHOLOGY NORM (NORMAL)
[2016-10-31 06:45] LABS: HEMATOCRIT 28.3 % (36.0-48.0); MEAN CORPUS HGB CONC 31.8 g/dL (32.0-36.0); MEAN CORPUSCULAR HEMOGLOB 25.9 pg (26.0-34.0); MEAN CORPUSCULAR VOLUME 81.6 fL (80-100); MEAN PLATELET VOLUME 9.5 fL (9.2-13.0); PLATELET COUNT 236 10/3/uL (150-400); RBC DISTRIBUTION WIDTH 15.1 % (12.0-16.0); RED CELL COUNT 3.47 10/6/uL (4.0-5.6)
[2016-10-31 06:46] LABS: MANUAL DIFF YES %
[2016-10-31 07:16] LABS: BAND NEUTROPHILS 22 %; HYPOCHROMIA 1+ (3-10/OIF) (0-2/OIF); IMMATURE GRANS ABSOLUTE (CALC) 2.34 10/3/uL (0.0-0.11); LYMPHOCYTES 6 %; LYMPHOCYTES ABSOLUTE (CALC) 1.08 10/3/uL (0.67-4.30); METAMYELOCYTES 10 %; MICROCYTES 1+ (5-10/OIF) (0-5/OIF); MONOCYTES 7 %; MONOCYTES ABSOLUTE (CALC) 1.26 10/3/uL (0.21-1.20); MYELOCYTES 3 %; NEUTROPHILS ABSOLUTE (CALC) 13.32 10/3/uL (2.02-8.40); PLATELET ESTIMATE ADQ (ADEQUATE); SEGMENTED NEUTROPHIL (0) 52 %; TOTAL NUCLEATED CELLS 100
[2016-11-01 17:18] LABS: FREE T4 1.13 NG/DL (0.76-1.46)
[2016-11-01 17:21] LABS: ULTRASENSITIVE TSH 0.039 MCIU/ML (0.358-3.740)
[2016-11-03 07:09] LABS: HEMATOCRIT 28.3 % (36.0-48.0); HEMOGLOBIN 9.1 g/dL (12.0-16.0); MEAN CORPUS HGB CONC 32.2 g/dL (32.0-36.0); MEAN CORPUSCULAR HEMOGLOB 26.5 pg (26.0-34.0); MEAN CORPUSCULAR VOLUME 82.5 fL (80-100); MEAN PLATELET VOLUME 9.9 fL (9.2-13.0); PLATELET COUNT 189 10/3/uL (150-400); RBC DISTRIBUTION WIDTH 15.4 % (12.0-16.0); RED CELL COUNT 3.43 10/6/uL (4.0-5.6); WHITE BLOOD CELLS 20.2 10/3/uL (4.5-10.5)
[2016-11-03 07:11] LABS: MANUAL DIFF YES %
[2016-11-03 07:15] LABS: INTERNATIONAL NORMAL RATI 1.2 UNITS (-)
[2016-11-03 07:20] LABS: CALCIUM, SERUM 8.5 MG/DL (8.5-10.4); CHLORIDE, SERUM 92 MMOL/L (96-112); CREATININE 0.82 MG/DL (0.55-1.02); GFR AFRICAN AMERICAN 87 ML/MIN (>=60); GFR NON AFRICAN AMERICAN 75 ML/MIN (>=60); POTASSIUM, SERUM 3.3 MMOL/L (3.5-5.3); SODIUM, SERUM 134 MMOL/L (135-148)
[2016-11-03 07:21] LABS: BUN (BLOOD UREA NITROGEN) 21 MG/DL (6-23); CO2 (CARBON DIOXIDE) 37 MMOL/L (24-34); GLUCOSE, SERUM 74 MG/DL (60-99)
[2016-11-03 07:44] LABS: BAND NEUTROPHILS 6 %; IMMATURE GRANS ABSOLUTE (CALC) 0.61 10/3/uL (0.0-0.11); LYMPHOCYTES 6 %; LYMPHOCYTES ABSOLUTE (CALC) 1.21 10/3/uL (0.67-4.30); METAMYELOCYTES 3 %; MONOCYTES 2 %; NEUTROPHILS ABSOLUTE (CALC) 17.98 10/3/uL (2.02-8.40); PLATELET ESTIMATE ADQ (ADEQUATE); RBC MORPHOLOGY NORM (NORMAL); SEGMENTED NEUTROPHIL (0) 83 %; TOTAL NUCLEATED CELLS 100
[2016-11-03 07:45] LABS: TOXIC GRANULATION 1+
[2016-11-04 06:28] LABS: HEMATOCRIT 28.6 % (36.0-48.0); HEMOGLOBIN 8.9 g/dL (12.0-16.0)
[2016-11-05 08:44] LABS: CALCIUM, SERUM 8.2 MG/DL (8.5-10.4); CHLORIDE, SERUM 98 MMOL/L (96-112); CO2 (CARBON DIOXIDE) 35 MMOL/L (24-34); CREATININE 0.69 MG/DL (0.55-1.02); GFR AFRICAN AMERICAN 106 ML/MIN (>=60); GFR NON AFRICAN AMERICAN 91 ML/MIN (>=60); POTASSIUM, SERUM 3.7 MMOL/L (3.5-5.3); SODIUM, SERUM 139 MMOL/L (135-148)
[2016-11-05 08:45] LABS: BUN (BLOOD UREA NITROGEN) 16 MG/DL (6-23); GLUCOSE, SERUM 96 MG/DL (60-99)
[2016-11-06 13:42] LABS: IMMUNOGLOBULIN A 75 MG/DL (70-420); IMMUNOGLOBULIN M 30 MG/DL (30-270)
[2016-11-06 13:43] LABS: IMMUNOGLOBULIN G 658 MG/DL (673-1464)
[2016-11-07 10:54] LABS: HEMATOCRIT 28.6 % (36.0-48.0); HEMOGLOBIN 9.1 g/dL (12.0-16.0); MANUAL DIFF YES %; MEAN CORPUS HGB CONC 31.8 g/dL (32.0-36.0); MEAN CORPUSCULAR HEMOGLOB 26.8 pg (26.0-34.0); MEAN CORPUSCULAR VOLUME 84.4 fL (80-100); MEAN PLATELET VOLUME 9.6 fL (9.2-13.0); PLATELET COUNT 193 10/3/uL (150-400); RBC DISTRIBUTION WIDTH 15.9 % (12.0-16.0); RED CELL COUNT 3.39 10/6/uL (4.0-5.6); WHITE BLOOD CELLS 11.3 10/3/uL (4.5-10.5)
[2016-11-07 11:01] LABS: PROTIME (NOT ORD) 13.2 SEC (12.0-14.5)
[2016-11-07 11:11] LABS: PARTIAL THROMBO TIME 20.9 SEC (22.5-37.2)
[2016-11-07 11:19] LABS: BAND NEUTROPHILS 1 %; IMMATURE GRANS ABSOLUTE (CALC) 0.23 10/3/uL (0.0-0.11); LYMPHOCYTES 14 %; LYMPHOCYTES ABSOLUTE (CALC) 1.58 10/3/uL (0.67-4.30); METAMYELOCYTES 2 %; MONOCYTES 7 %; MONOCYTES ABSOLUTE (CALC) 0.79 10/3/uL (0.21-1.20); PLATELET ESTIMATE ADQ (ADEQUATE); RBC MORPHOLOGY NORM (NORMAL); SEGMENTED NEUTROPHIL (0) 76 %; TOTAL NUCLEATED CELLS 100
[2016-11-07 14:39] LABS: BD FL SOURCE (NOT ORD) BAL
[2016-11-07 14:40] LABS: BF TOTAL CELL CT (NOT ORD 15804 /MM3; BODY FLUID RBC (NOT ORD) 33000 /MM3
[2016-11-07 14:50] LABS: BD FL LYMPH (NOT ORD) 2 %; BF BASO (NOT OF) 0 %; BF LARGE MONONUCLEAR 0 %; BODY FLUID EOS (NOT ORD) 0 %; BODY FLUID SEG (NOT ORD) 98 %
[2016-11-08 06:22] LABS: HEMOGLOBIN 9.8 g/dL (12.0-16.0); MEAN CORPUS HGB CONC 31.6 g/dL (32.0-36.0); MEAN CORPUSCULAR HEMOGLOB 26.6 pg (26.0-34.0); MEAN PLATELET VOLUME 9.4 fL (9.2-13.0); PLATELET COUNT 232 10/3/uL (150-400); RBC DISTRIBUTION WIDTH 15.9 % (12.0-16.0); RED CELL COUNT 3.69 10/6/uL (4.0-5.6); WHITE BLOOD CELLS 12.8 10/3/uL (4.5-10.5)
[2016-11-08 06:23] LABS: MANUAL DIFF YES %
[2016-11-08 06:28] LABS: CHLORIDE, SERUM 98 MMOL/L (96-112); CREATININE 1.01 MG/DL (0.55-1.02); GFR AFRICAN AMERICAN 68 ML/MIN (>=60); GFR NON AFRICAN AMERICAN 58 ML/MIN (>=60); POTASSIUM, SERUM 3.8 MMOL/L (3.5-5.3); SODIUM, SERUM 137 MMOL/L (135-148)
[2016-11-08 06:29] LABS: BUN (BLOOD UREA NITROGEN) 22 MG/DL (6-23); CALCIUM, SERUM 9.5 MG/DL (8.5-10.4); CO2 (CARBON DIOXIDE) 30 MMOL/L (24-34); GLUCOSE, SERUM 130 MG/DL (60-99)
[2016-11-08 06:49] LABS: BAND NEUTROPHILS 1 %; LYMPHOCYTES 2 %; LYMPHOCYTES ABSOLUTE (CALC) 0.26 10/3/uL (0.67-4.30); MONOCYTES 6 %; MONOCYTES ABSOLUTE (CALC) 0.77 10/3/uL (0.21-1.20); NEUTROPHILS ABSOLUTE (CALC) 11.78 10/3/uL (2.02-8.40); PLATELET ESTIMATE ADQ (ADEQUATE); RBC MORPHOLOGY NORM (NORMAL); SEGMENTED NEUTROPHIL (0) 91 %; TOTAL NUCLEATED CELLS 100
[2016-11-08] MEDS ORDERED: PROPYLTHIOURACI50 MG PO (12:26)
[2016-11-08] MEDS ORDERED: ADVAIR250 INH (12:28)
[2016-11-11 09:10] LABS: IMMUNOGLOBULIN G SUBCLASS 1 472 mg/dL (405-1011); IMMUNOGLOBULIN G SUBCLASS 2 101 mg/dL (169-786); IMMUNOGLOBULIN G SUBCLASS 3 16 mg/dL (11-85); IMMUNOGLOBULIN G SUBCLASS 4 48 mg/dL (3-201)
== END 2016-11-08 16:55 | disposition home or self-care (01) | DRG 808 ==
LOC: ER 15:39 → 5SO 17:42
PROVIDERS: Hospitalist; Internal Medicine; Internal Medicine Gastroenterology; Internal Medicine Hematology & Oncology; Nurse Practitioner Acute Care; Nurse Practitioner Family; Physician Assistant Medical
PROC: 0DB58ZX Excision of Esophagus, Via Natural or Artificial Opening Endoscopic, Diagnostic (ICD-10-PCS; principal; 2016-11-03 10:21)
PROC: 0BJ08ZZ Inspection of Tracheobronchial Tree, Via Natural or Artificial Opening Endoscopic (ICD-10-PCS; 2016-11-07)
DX: D70.2 Other drug-induced agranulocytosis (principal); J96.21 Acute and chronic respiratory failure with hypoxia; I50.32 Chronic diastolic (congestive) heart failure; J44.1 Chronic obstructive pulmonary disease with (acute) exacerbation; E87.1 Hypo-osmolality and hyponatremia; I48.0 Paroxysmal atrial fibrillation; K22.2 Esophageal obstruction; I10 Essential (primary) hypertension; E86.9 Volume depletion, unspecified; G25.81 Restless legs syndrome; D64.9 Anemia, unspecified; E11.9 Type 2 diabetes mellitus without complications; N20.0 Calculus of kidney; T38.2X5A Adverse effect of antithyroid drugs, initial encounter; E05.90 Thyrotoxicosis, unspecified without thyrotoxic crisis or storm; K59.00 Constipation, unspecified; R50.81 Fever presenting with conditions classified elsewhere; K21.9 Gastro-esophageal reflux disease without esophagitis; Z79.899 Other long term (current) drug therapy; G89.29 Other chronic pain; G47.33 Obstructive sleep apnea (adult) (pediatric); I25.10 Atherosclerotic heart disease of native coronary artery without angina pectoris; M10.9 Gout, unspecified; I25.2 Old myocardial infarction; Z88.1 Allergy status to other antibiotic agents; Z88.0 Allergy status to penicillin; Z88.8 Allergy status to other drugs, medicaments and biological substances; Z88.2 Allergy status to sulfonamides; Z82.49 Family history of ischemic heart disease and other diseases of the circulatory system; Z80.42 Family history of malignant neoplasm of prostate; G89.4 Chronic pain syndrome; Z87.891 Personal history of nicotine dependence; Z90.49 Acquired absence of other specified parts of digestive tract; Z90.710 Acquired absence of both cervix and uterus; Z98.890 Other specified postprocedural states; Z79.82 Long term (current) use of aspirin
CPT/HCPCS: 71010; 71020; 74000; 74176; 74230; 74246; 80048; 80053; 81001; 82607; 82746; 82784; 82785; 82787; 82787-59; 83605; 83615; 83690; 83735; 83880; 84100; 84132; 84439; 84443; 84481; 85014; 85018; 85025; 85610; 85730; 86255; 87015; 87040; 87070; 87101; 87102; 87107; 87116; 87205; 87252; 88112; 88305; 88312; 89051; 92611-GN; 93005; 94640; 96365; 96375; 97110-GP; 97116-GP; 97161-GP; 97164-GP; 99285; A9270-GY; C9113; J0330; J0360; J0692; J1170; J1447; J1940; J1956; J2405; J2550; J2930; J3010

== ENCOUNTER 2016-12-05 09:11 | Inpatient (IN) | payer BC ==
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
--- NOTE | ~2016-12-05 | DS ---
Discharge Summary [id number] [place]. [address] NAME: CHAPIN GUTIERRES : 52 STATUS : DIS IN PAT#: [id number] AGE: 66 ADM/REG DATE : 12/05/16 MR#: [id number] REPORT SERV DATE: 12/12/16 DICTATED BY: LYNDA JEROME DATE: 12/11/16 REPORT STATUS : Draft TRANSCRIBED BY: MODSimran DATE: 12/11/16 ADMISSION DATE: 12/05/2016 DISCHARGE DATE: 12/11/2016 CONSULTATION: Infectious Disease, Dr. Wei Cesar. DISCHARGE DIAGNOSES: 1. Sepsis. 2. Acute on chronic hypoxic respiratory failure. 3. Healthcare-associated pneumonia. 4. Urinary tract infection. 5. Acute kidney injury. 6. History of paroxysmal atrial fibrillation. 7. History of hyperthyroidism. 8. Chronic obstructive pulmonary disease exacerbation. 9. History of esophageal stricture, status post dilatation. 10.Normocytic anemia secondary to anemia of chronic disease. 11.History of paroxysmal atrial fibrillation, on chronic anticoagulation with Eliquis. 12.History of Schatzki rings. DISCHARGE CONDITION: Stable. BRIEF HISTORY OF PRESENT ILLNESS: For detailed HPI, please make reference to Dr. Azalea Huerta's dictation on 12/05/2016. This is a 66-year-old female with medical history of chronic hypoxic respiratory failure and COPD, who presented to the hospital with complaints of cough productive of brownish sputum, shortness of breath, and fever. In the ER, she was found to have a blood pressure of 92/71, temperature of 98.3. Physical exam revealed diffuse wheezing bilaterally with increased respiratory effort. Laboratory, ABG showed a pH of 7.34 with a PaO2 of 72 on 34% of nasal cannula oxygen, 34% FiO2. Laboratory data; white blood cell count was 30.2. Procalcitonin was 135. Urinalysis: Positive for large amount of leukocyte esterase, positive nitrites, and occasional bacteria noted. Chest x-ray showed bilateral bibasilar infiltrates. An assessment of severe sepsis secondary to pneumonia and urinary tract infection was made in the ER. The patient was admitted to the Hospitalist Service. HOSPITAL COURSE: Severe sepsis due to pneumonia and urinary tract infection. Blood cultures, sputum cultures, and urine cultures were obtained in the ER. The patient was started on broad-spectrum IV antibiotics, vancomycin and cefepime. A CT scan of the chest, abdomen, and pelvis without contrast was performed and it revealed dense area of consolidation within the lower lobes of both lungs, most compatible with pneumonia. Given severity of the patient's sepsis, ID was consulted. Sputum cultures grew methicillin- sensitive Staph aureus, and urine culture was also positive for Klebsiella pneumoniae. The patient's IV antibiotics were narrowed down to IV Zosyn. The patient's WBC trended down from 30,000 to 13.0, and the patient's cough, shortness of breath, and fever had completely resolved. The patient was advised to continue p.o. antibiotics as prescribed by Infectious Discharge Summary [address] [address] NAME: CHAPIN GUTIERRES : 52 STATUS : DIS IN PAT#: [id number] AGE: 66 ADM/REG DATE : 12/05/16 MR#: [id number] REPORT SERV DATE: 12/12/16 DICTATED BY: LYNDA JEROME DATE: 12/11/16 REPORT STATUS : Draft TRANSCRIBED BY: ROMINA DATE: 12/11/16 Disease. The patient was also advised to continue to follow up with primary care physician. Acute hypoxic respiratory failure secondary to pneumonia and COPD exacerbation. The patient was noted to have increase in oxygen requirement. Of note, at baseline, the patient uses home O2 only at bedtime; however, during this hospitalization, oxygen requirement initially was at 4 L to maintain a saturation of 93%. This was gradually weaned down during the course of this admission. The patient also received DuoNeb, IV prednisone, IV methylprednisone, and multiple inhalers. The patient will be assessed for need for daytime home O2 prior to discharge. If the patient qualifies, the patient will be advised with home O2 both at daytime and nighttime. Normocytic anemia, likely due to anemia of chronic disease. No evidence of acute blood loss during the course of this admission. The patient was advised to continue to follow up with primary care physician. Paroxysmal atrial fibrillation, on chronic anticoagulation with Eliquis. The patient's Eliquis was continued throughout the course of this admission without any significant complication. The patient had a transient period of rapid ventricular response. A dose of digoxin was given during the course of this admission. The patient's home dose of Cardizem was increased to 360 mg. The patient's heart rate gradually trended down back to the 90s and remained stable. The patient was advised to continue followup with Cardiology as an outpatient. Chronic stage II cervical spine ulcer. The patient had a CT of the cervical spine without any evidence of bony involvement. Ulcer was basically clean throughout the course of this admission. The patient was advised to continue daily dressing and follow up with Wound Care as an outpatient. Venous stasis dermatitis, noted during the course of this admission. Erythematous skin rash significantly improved prior to discharge. The patient was advised to continue to wear AMALIA hose at home. History of hypothyroidism. The patient was advised to continue home dose propylthiouracil and follow up with Nephrology as an outpatient. DISCHARGE MEDICATIONS: 1. Apixaban 2.5 mg p.o. b.i.d. 2. Artificial Tears 2 drops daily. 3. Aspirin 81 mg p.o. daily. 4. Azelastine 0.1 nasal spray. 5. Torsemide 10 mg p.o. daily. 6. Diltiazem 360 mg p.o. daily. 7. Dulcolax 10 mg p.o. daily. 8. Lisinopril 10 mg p.o. at bedtime. 9. Guaifenesin 1200 mg p.o. b.i.d. 10.Nexium 40 mg p.o. daily. 11.Hydralazine 50 mg t.i.d. Discharge Summary [address] [address] NAME: CHAPIN GUTIERRES : 52 STATUS : DIS IN PAT#: [id number] AGE: 66 ADM/REG DATE : 12/05/16 MR#: [id number] REPORT SERV DATE: 12/12/16 DICTATED BY: LYNDA JEROME DATE: 12/11/16 REPORT STATUS : Draft TRANSCRIBED BY: ROMINA DATE: 12/11/16 12.Spironolactone 50 mg p.o. daily. 13.Potassium chloride 10 mEq p.o. b.i.d. 14.Propylthiouracil 100 mg p.o. t.i.d. FOLLOWUP: 1. The patient was advised to follow up with primary care physician within one to two weeks of discharge. 2. Follow up with digital forensic examiner as an outpatient as per schedule. 3. Follow up with Cardiology. 4. Continue followup with Wound Care. Discharged home with home health. Greater than 40 minutes was used to prepare this patient's discharge, reconcile medication, and advise the patient on discharge plans and followup. DICTATED BY: Lynda Jerome MD IOO/MODL Lynda Jerome MD / [id number] CC: Lynda Jerome MD
[2016-12-05 08:42] LABS: BASOPHILS 0.1 %; BASOPHILS ABSOLUTE 0.04 10/3/uL (0.0-0.16); EOSINOPHILS 0.1 %; EOSINOPHILS ABSOLUTE 0.03 10/3/uL (0.0-0.53); IMMATURE GRANULOCYTES 0.5 %; LYMPHOCYTES 2.9 %; LYMPHOCYTES ABSOLUTE 0.88 10/3/uL (0.67-4.30); MEAN CORPUS HGB CONC 32.3 g/dL (32.0-36.0); MEAN CORPUSCULAR VOLUME 80.7 fL (80-100); MEAN PLATELET VOLUME 10.3 fL (9.2-13.0); MONOCYTES 2.7 %; MONOCYTES ABSOLUTE 0.83 10/3/uL (0.21-1.20); NEUTROPHILS 93.7 %; NEUTROPHILS ABSOLUTE 28.29 10/3/uL (2.02-8.40); PLATELET COUNT 202 10/3/uL (150-400); RBC DISTRIBUTION WIDTH 16.7 % (12.0-16.0); RED CELL COUNT 3.84 10/6/uL (4.0-5.6); WHITE BLOOD CELLS 30.2 10/3/uL (4.5-10.5)
[2016-12-05 08:43] LABS: IMMATURE GRANULOCYTES ABSOLUTE 0.16 10/3/uL (0.0-0.11); MANUAL DIFF NO %
[2016-12-05 08:50] LABS: INTERNATIONAL NORMAL RATI 1.5 UNITS (-); PARTIAL THROMBO TIME 35.1 SEC (22.5-37.2)
[2016-12-05 08:57] LABS: ALBUMIN 3.4 G/DL (3.5-5.0); ALKALINE PHOSPHATASE 85 U/L (45-117); BUN (BLOOD UREA NITROGEN) 43 MG/DL (6-23); CALCIUM, SERUM 9.3 MG/DL (8.5-10.4); CHLORIDE, SERUM 102 MMOL/L (96-112); CO2 (CARBON DIOXIDE) 24 MMOL/L (24-34); CREATININE 2.72 MG/DL (0.55-1.02); GFR AFRICAN AMERICAN 20 ML/MIN (>=60); GFR NON AFRICAN AMERICAN 18 ML/MIN (>=60); GLOBULIN 3.5 G/DL (2.5-4.1); GLUCOSE, SERUM 114 MG/DL (60-99); POTASSIUM, SERUM 5.5 MMOL/L (3.5-5.3); SGOT(AST) 15 U/L (5-40); SGPT(ALT) 16 U/L (5-65); SODIUM, SERUM 133 MMOL/L (135-148); TOTAL BILIRUBIN 0.5 MG/DL (0-1.2); TOTAL PROTEIN 6.9 G/DL (6.0-8.5)
[2016-12-05 08:59] LABS: LACTATE 1.2 MMOL/L (0.3-2.4)
[2016-12-05 09:07] LABS: BAND NEUTROPHILS 19 %; ER DIFF TAT 0 Hrs 31 Mins; LYMPHOCYTES 5 %; LYMPHOCYTES ABSOLUTE (CALC) 1.51 10/3/uL (0.67-4.30); MONOCYTES 1 %; NEUTROPHILS ABSOLUTE (CALC) 28.39 10/3/uL (2.02-8.40); PLATELET ESTIMATE ADQ (ADEQUATE); RBC MORPHOLOGY NORM (NORMAL); SEGMENTED NEUTROPHIL (0) 75 %; TOTAL NUCLEATED CELLS 100
[~2016-12-05 09:11] MED LIST changes: +ASTELIN NAS; +ATROVENTUD INH; +BIOTIN5 MG PO; +DEMA10T PO; +ELIQUIS 2.5 MG2.5 MG PO; +ENDOCET1 TA3 PO; +REG5 PO; +TAPAZOLE10 MG PO; +TEARS PLUS OPH; +TEARS PURE OPH
[2016-12-05 09:14] LABS: BE (BASE EXCESS) -5.7 MEQ/L (0 +/- 2.5); DEVICE NC; HCO3 (ACTUAL BICARBONATE) 19.3 MEQ/L (23-27); INSTRUMENT SERIAL # 8087; OPERATOR ID 18801; PCO2 (CO2 TENSION) 37 MMHG (35-45); PO2 (O2 TENSION) 72 MMHG (79-93); SAMPLE Arterial; pH 7.34 (7.37-7.43)
[2016-12-05 09:17] LABS: ASCORBIC ACID (UR NOT ORDER) NEG (NEG); BILIRUBIN, URINE NEGATIVE (NEG); KETONE, URINE NEGATIVE (NEG); LEUKOCYTE ESTERASE(NOT OR LARGE (NEG); WBC (NOT ORDERED) (RFLEX) 85 (0-5)
[2016-12-05 09:18] LABS: NITRITE (URINE) POS (NEG)
[2016-12-05] MEDS ORDERED: MYTAB GAS80 MG PO (12:33)
[2016-12-05] MEDS ORDERED: SPIRIVA INH (12:35)
[2016-12-05] MEDS ORDERED: PR25 PO (12:36)
[2016-12-05] MEDS ORDERED: POTASSIUM CHLORIDE IV (12:40)
[2016-12-05 14:50] LABS: FREE T4 1.37 NG/DL (0.76-1.46); TROPONIN I 0.07 NG/ML (<0.05); ULTRASENSITIVE TSH 0.387 MCIU/ML (0.358-3.740)
[2016-12-05 18:33] LABS: PROCALCITONIN 49.84 ng/mL (<0.5)
[2016-12-06 05:10] LABS: HEMATOCRIT 28.6 % (36.0-48.0); HEMOGLOBIN 9.4 g/dL (12.0-16.0); MEAN CORPUS HGB CONC 32.9 g/dL (32.0-36.0); MEAN CORPUSCULAR HEMOGLOB 26.3 pg (26.0-34.0); MEAN CORPUSCULAR VOLUME 80.1 fL (80-100); MEAN PLATELET VOLUME 11.3 fL (9.2-13.0); PLATELET COUNT 148 10/3/uL (150-400); RBC DISTRIBUTION WIDTH 16.8 % (12.0-16.0); RED CELL COUNT 3.57 10/6/uL (4.0-5.6); WHITE BLOOD CELLS 21.9 10/3/uL (4.5-10.5)
[2016-12-06 05:13] LABS: MANUAL DIFF YES %
[2016-12-06 05:33] LABS: A/G RATIO 0.7 (0.7-1.9); ALBUMIN 2.8 G/DL (3.5-5.0); ALKALINE PHOSPHATASE 78 U/L (45-117); CALCIUM, SERUM 9.4 MG/DL (8.5-10.4); CHLORIDE, SERUM 108 MMOL/L (96-112); CO2 (CARBON DIOXIDE) 20 MMOL/L (24-34); GLOBULIN 3.8 G/DL (2.5-4.1); POTASSIUM, SERUM 5.5 MMOL/L (3.5-5.3); SGOT(AST) 14 U/L (5-40); SGPT(ALT) 16 U/L (5-65); SODIUM, SERUM 135 MMOL/L (135-148); TOTAL BILIRUBIN 0.2 MG/DL (0-1.2); TOTAL PROTEIN 6.6 G/DL (6.0-8.5)
[2016-12-06 05:42] LABS: BUN (BLOOD UREA NITROGEN) 32 MG/DL (6-23); CREATININE 1.28 MG/DL (0.55-1.02); GFR AFRICAN AMERICAN 51 ML/MIN (>=60); GFR NON AFRICAN AMERICAN 44 ML/MIN (>=60); GLUCOSE, SERUM 166 MG/DL (60-99)
[2016-12-06 05:53] LABS: BAND NEUTROPHILS 12 %; BURR CELLS 1+ (3-10/OIF) (0-2/OIF); PLATELET ESTIMATE SLT DEC (ADEQUATE); SEGMENTED NEUTROPHIL (0) 88 %; TOTAL NUCLEATED CELLS 100
[2016-12-06 06:13] LABS: PROCALCITONIN <0.05 ng/mL (<0.5)
[2016-12-07 03:40] LABS: BASOPHILS 0 %; EOSINOPHILS 0 %; HEMOGLOBIN 8.7 g/dL (12.0-16.0); IMMATURE GRANULOCYTES 0.5 %; LYMPHOCYTES ABSOLUTE 0.41 10/3/uL (0.67-4.30); MANUAL DIFF NO %; MEAN CORPUS HGB CONC 32.2 g/dL (32.0-36.0); MEAN CORPUSCULAR HEMOGLOB 26.2 pg (26.0-34.0); MEAN CORPUSCULAR VOLUME 81.3 fL (80-100); MEAN PLATELET VOLUME 10.7 fL (9.2-13.0); MONOCYTES 3.1 %; MONOCYTES ABSOLUTE 0.63 10/3/uL (0.21-1.20); NEUTROPHILS 94.4 %; NEUTROPHILS ABSOLUTE 19.47 10/3/uL (2.02-8.40); PLATELET COUNT 171 10/3/uL (150-400); RBC DISTRIBUTION WIDTH 16.9 % (12.0-16.0); RED CELL COUNT 3.32 10/6/uL (4.0-5.6); WHITE BLOOD CELLS 20.6 10/3/uL (4.5-10.5)
[2016-12-07 03:58] LABS: CALCIUM, SERUM 10.1 MG/DL (8.5-10.4); CHLORIDE, SERUM 108 MMOL/L (96-112); CO2 (CARBON DIOXIDE) 24 MMOL/L (24-34); CREATININE 0.98 MG/DL (0.55-1.02); GFR AFRICAN AMERICAN 70 ML/MIN (>=60); GFR NON AFRICAN AMERICAN 61 ML/MIN (>=60); POTASSIUM, SERUM 5.3 MMOL/L (3.5-5.3); SODIUM, SERUM 136 MMOL/L (135-148); TROPONIN I 0.03 NG/ML (<0.05)
[2016-12-07 03:59] LABS: BUN (BLOOD UREA NITROGEN) 27 MG/DL (6-23); GLUCOSE, SERUM 130 MG/DL (60-99)
[2016-12-08 04:45] LABS: BASOPHILS 0.1 %; BASOPHILS ABSOLUTE 0.01 10/3/uL (0.0-0.16); EOSINOPHILS 0 %; HEMATOCRIT 27.7 % (36.0-48.0); HEMOGLOBIN 8.9 g/dL (12.0-16.0); IMMATURE GRANULOCYTES 0.8 %; IMMATURE GRANULOCYTES ABSOLUTE 0.14 10/3/uL (0.0-0.11); LYMPHOCYTES 4.4 %; LYMPHOCYTES ABSOLUTE 0.73 10/3/uL (0.67-4.30); MEAN CORPUS HGB CONC 32.1 g/dL (32.0-36.0); MEAN CORPUSCULAR HEMOGLOB 26.3 pg (26.0-34.0); MEAN PLATELET VOLUME 10.8 fL (9.2-13.0); MONOCYTES 4.3 %; MONOCYTES ABSOLUTE 0.72 10/3/uL (0.21-1.20); NEUTROPHILS 90.4 %; NEUTROPHILS ABSOLUTE 14.98 10/3/uL (2.02-8.40); PLATELET COUNT 185 10/3/uL (150-400); RBC DISTRIBUTION WIDTH 16.6 % (12.0-16.0); RED CELL COUNT 3.38 10/6/uL (4.0-5.6); WHITE BLOOD CELLS 16.6 10/3/uL (4.5-10.5)
[2016-12-08 04:48] LABS: MANUAL DIFF NO %
[2016-12-08 05:03] LABS: BUN (BLOOD UREA NITROGEN) 25 MG/DL (6-23); CALCIUM, SERUM 9.7 MG/DL (8.5-10.4); CHLORIDE, SERUM 103 MMOL/L (96-112); CO2 (CARBON DIOXIDE) 26 MMOL/L (24-34); CREATININE 0.86 MG/DL (0.55-1.02); GFR AFRICAN AMERICAN 82 ML/MIN (>=60); GFR NON AFRICAN AMERICAN 71 ML/MIN (>=60); POTASSIUM, SERUM 4.5 MMOL/L (3.5-5.3); SODIUM, SERUM 137 MMOL/L (135-148)
[2016-12-08 05:04] LABS: DIGOXIN 0.4 NG/ML (0.8-2.0); GLUCOSE, SERUM 103 MG/DL (60-99)
[2016-12-09 05:46] LABS: BASOPHILS 0.1 %; BASOPHILS ABSOLUTE 0.02 10/3/uL (0.0-0.16); EOSINOPHILS 0.2 %; EOSINOPHILS ABSOLUTE 0.03 10/3/uL (0.0-0.53); HEMATOCRIT 28.4 % (36.0-48.0); IMMATURE GRANULOCYTES ABSOLUTE 0.27 10/3/uL (0.0-0.11); LYMPHOCYTES 6.5 %; LYMPHOCYTES ABSOLUTE 0.89 10/3/uL (0.67-4.30); MEAN CORPUS HGB CONC 31.7 g/dL (32.0-36.0); MEAN CORPUSCULAR HEMOGLOB 25.5 pg (26.0-34.0); MEAN CORPUSCULAR VOLUME 80.5 fL (80-100); MEAN PLATELET VOLUME 9.8 fL (9.2-13.0); MONOCYTES 7.1 %; MONOCYTES ABSOLUTE 0.96 10/3/uL (0.21-1.20); NEUTROPHILS 84.1 %; NEUTROPHILS ABSOLUTE 11.42 10/3/uL (2.02-8.40); PLATELET COUNT 184 10/3/uL (150-400); RBC DISTRIBUTION WIDTH 16.4 % (12.0-16.0); RED CELL COUNT 3.53 10/6/uL (4.0-5.6); WHITE BLOOD CELLS 13.6 10/3/uL (4.5-10.5)
[2016-12-09 05:47] LABS: MANUAL DIFF NO %
[2016-12-09 05:55] LABS: BUN (BLOOD UREA NITROGEN) 24 MG/DL (6-23); CALCIUM, SERUM 9.1 MG/DL (8.5-10.4); CHLORIDE, SERUM 103 MMOL/L (96-112); CO2 (CARBON DIOXIDE) 27 MMOL/L (24-34); CREATININE 0.85 MG/DL (0.55-1.02); GFR AFRICAN AMERICAN 83 ML/MIN (>=60); GFR NON AFRICAN AMERICAN 72 ML/MIN (>=60); GLUCOSE, SERUM 118 MG/DL (60-99); PHOSPHORUS, SERUM 2.3 MG/DL (2.5-4.5); POTASSIUM, SERUM 3.9 MMOL/L (3.5-5.3); SODIUM, SERUM 135 MMOL/L (135-148)
[2016-12-10 04:15] LABS: BASOPHILS 0.2 %; BASOPHILS ABSOLUTE 0.02 10/3/uL (0.0-0.16); EOSINOPHILS 0.1 %; EOSINOPHILS ABSOLUTE 0.01 10/3/uL (0.0-0.53); HEMATOCRIT 29.3 % (36.0-48.0); HEMOGLOBIN 9.5 g/dL (12.0-16.0); IMMATURE GRANULOCYTES 3.6 %; IMMATURE GRANULOCYTES ABSOLUTE 0.47 10/3/uL (0.0-0.11); LYMPHOCYTES 3.5 %; LYMPHOCYTES ABSOLUTE 0.45 10/3/uL (0.67-4.30); MEAN CORPUS HGB CONC 32.4 g/dL (32.0-36.0); MEAN CORPUSCULAR HEMOGLOB 26.4 pg (26.0-34.0); MEAN CORPUSCULAR VOLUME 81.4 fL (80-100); MEAN PLATELET VOLUME 10.1 fL (9.2-13.0); MONOCYTES 2.4 %; MONOCYTES ABSOLUTE 0.31 10/3/uL (0.21-1.20); NEUTROPHILS 90.2 %; NEUTROPHILS ABSOLUTE 11.76 10/3/uL (2.02-8.40); PLATELET COUNT 214 10/3/uL (150-400); RBC DISTRIBUTION WIDTH 16.1 % (12.0-16.0)
[2016-12-10 04:16] LABS: MANUAL DIFF NO %
[2016-12-10 04:26] LABS: BUN (BLOOD UREA NITROGEN) 27 MG/DL (6-23); CHLORIDE, SERUM 98 MMOL/L (96-112); CO2 (CARBON DIOXIDE) 32 MMOL/L (24-34); GFR AFRICAN AMERICAN 78 ML/MIN (>=60); GFR NON AFRICAN AMERICAN 67 ML/MIN (>=60); GLUCOSE, SERUM 196 MG/DL (60-99); PHOSPHORUS, SERUM 2.5 MG/DL (2.5-4.5); POTASSIUM, SERUM 4.2 MMOL/L (3.5-5.3); SODIUM, SERUM 136 MMOL/L (135-148)
[2016-12-11] MEDS ORDERED: CARDCD180 PO (16:22)
[2016-12-11] MEDS ORDERED: PROPYLTHIOURACI50 MG PO (16:29)
[2016-12-11] MEDS ORDERED: AUG875 (16:30)
[2016-12-11] MEDS ORDERED: P20 PO (16:30)
[2016-12-11] MEDS ORDERED: P5 PO ×2 (16:31→16:32)
[2016-12-11] MEDS ORDERED: P10 PO (16:31)
== END 2016-12-11 18:28 | disposition home or self-care (01) | DRG 871 ==
LOC: ER 09:11 → 7NO 10:37
PROVIDERS: Emergency Medicine; Hospitalist; Internal Medicine Infectious Disease
DX: A41.9 Sepsis, unspecified organism (principal); J96.21 Acute and chronic respiratory failure with hypoxia; N17.9 Acute kidney failure, unspecified; L89.102 Pressure ulcer of unspecified part of back, stage 2; J18.9 Pneumonia, unspecified organism; I48.0 Paroxysmal atrial fibrillation; J44.1 Chronic obstructive pulmonary disease with (acute) exacerbation; K22.2 Esophageal obstruction; N39.0 Urinary tract infection, site not specified; E05.90 Thyrotoxicosis, unspecified without thyrotoxic crisis or storm; I10 Essential (primary) hypertension; I25.2 Old myocardial infarction; K21.9 Gastro-esophageal reflux disease without esophagitis; I87.2 Venous insufficiency (chronic) (peripheral); E86.0 Dehydration; B96.1 Klebsiella pneumoniae [K. pneumoniae] as the cause of diseases classified elsewhere; G89.4 Chronic pain syndrome; G25.81 Restless legs syndrome; Y95 Nosocomial condition; M10.9 Gout, unspecified; D63.8 Anemia in other chronic diseases classified elsewhere; Z87.01 Personal history of pneumonia (recurrent); Z79.02 Long term (current) use of antithrombotics/antiplatelets; Z90.710 Acquired absence of both cervix and uterus; Z90.49 Acquired absence of other specified parts of digestive tract; Z87.891 Personal history of nicotine dependence; Z79.82 Long term (current) use of aspirin
CPT/HCPCS: 36600; 71010; 71020; 71250; 72125; 72128; 74000; 74176; 80048; 80053; 80162; 80202; 81001; 82805; 83605; 83735; 83880; 84100; 84145; 84439; 84443; 84481; 84484; 85025; 85610; 85730; 87040; 87070; 87077; 87086; 87186; 87205; 93005; 94640; 96374; 99285; A9270-GY; J0692; J1170; J2405; J2543; J2920; J2930; J3370; J3475